=== PATIENT | female | born 1940 | race Caucasian/White ===

== ENCOUNTER 2019-11-17 12:54 | Outpatient (CLI) | payer MEDICARE, BC, SELFPAY ==
--- NOTE | 2019-11-17 13:01 | CT_ITS ---
WS: [id number] CT ABDOMEN CONTRAST TECHNIQUE: Contrast enhanced CT of the abdomen with coronal and sagittal reformatted images. CLINICAL INFORMATION: USPECIFIED ABD PAIN COMPARISON: None. DLP: 697.[address] scans at [facility] use at least one of these dose optimization techniques: automat ed exposure control; mA and/or kV adjustment per patient size (includes targeted exams where dose is matched to clinical indication); or iterative reconstruction. FINDINGS: Mild diffuse fatty infiltration liver. Hepatomegaly with enlargement of the right hepatic lobe measur ing 18.5 cm. Normal portal vein and splenic vein. Gallbladder is contracted. Normal spleen. Visualize d pancreas is normal. Adrenal glands are normal. Normal renal parenchymal enhancement. Right renal cyst measuring 2.1 cm. N o hydronephrosis. Lung bases are well aerated. Normal caliber abdominal aorta. Aortic calcification. Tiny fat-containing umbilical hernia. Lumbar scoliosis convex right. Disc space narrowing worse at L2 -3. CT/CT abdomen w con* [id number] IMPRESSION: 1. Diffuse fatty infiltration of the liver with enlargement of the right hepat ic lobe. Recommend correlation with liver function tests. 2. Right renal cyst measuring 2.1 cm. No hydronephrosis. Normal renal parenchy mal enhancement. 3. Normal caliber abdominal aorta. 4. Lumbar scoliosis convex right. 5. No other significant findings.
[2019-11-17] MEDS: iohexol 300 mg/mL 50 mL Btl PO (13:49)
== END 2019-11-17 12:55 | disposition home or self-care (01) ==
LOC: RADWPI 12:57
PROVIDERS: Family Provider General Practice; PCP General Practice; Visit Provider General Practice
DX: R10.9 Unspecified abdominal pain (principal); K76.0 Fatty (change of) liver, not elsewhere classified; N28.1 Cyst of kidney, acquired
CPT/HCPCS: 74160; Q9967

== ENCOUNTER → 2019-11-26 10:10 | Outpatient (BNVA) | payer MEDICARE, BC, SELFPAY | PROVIDERS: Family Provider General Practice; PCP General Practice; Visit Provider Internal Medicine | DX: Z11.59 Encounter for screening for other viral diseases (principal) | CPT/HCPCS: 87635 ==

== ENCOUNTER 2019-11-28 08:53 | Day surgery (SDC) | payer MEDICARE, BC, SELFPAY ==
[2019-11-27 08:22] VITALS: BMI 27.4
[2019-11-28 09:19] VITALS: BP 145/86; PULSE 72; RESP 18; TEMP 36.3; O2SAT 98
[2019-11-28] MEDS: sodium chloride 0.9% 1,000 ML 30 ML IV (09:30)
--- NOTE | 2019-11-28 09:47 | W.PM.OPSUD ---
Surgery/Procedure H&P Update DATE OF PROCEDURE: November 28, 2019 DATE H&P PERFORMED: 11/19/19 PREOP DIAGNOSIS: pain PLANNED PROCEDURE: Operation Date: 11/28/19 10:00 Proposed Procedures p EGD 20730 R10.11(Not Applicable) - Lance Mcdonald MD
--- NOTE | 2019-11-28 10:08 | P.ANESASSM_ITS ---
Pre-Anesthetic Assessment Pre-Anesthetic Assessment: Height/Weight: Height 1.6 m Weight 70.307 kg Temp Pulse Resp BP Pulse Ox 97.4 F L 72 18 145/86 98 11/28/19 09:19 11/28/19 09:19 11/28/19 09:19 11/28/19 09:19 11/28/19 09:19 Preop Diagnosis: pain Proposed Procedure: Operation Date: 11/28/19 10:00 Proposed Procedures p EGD 49531 R10.11(Not Applicable) - Lance Mcdonald MD Familial anesthetic complications: none Was Beta Sanya taken within 24 hours: N/A Last intake: Intake Last Liquid Date 11/27/19 Last Liquid Time 20:00 Last Solid Date 11/27/19 Last Solid Time 20:00 Social: Social History: No alcohol and No tobacco Exam: Pre-Anes Outpt Exam: alert, oriented x 3, clear to auscultation bilaterally and regular rate & rhythm Airway: Cervical ROM: WNL MP: 1 Dentition: False GI: GI: GERD Metabolic: Metabolic: Hyperlipidemia Anesthetic Plan: ASA status: 2 Anesthesia: MAC Risk of > 500 ml blood lo ss (7ml/kg in children): No PFSH Anesthesia PFSH: Family History (Updated 11/19/19 @ 12:53 by VALERIE Gotti) Father Cancer Mother Diabetes Social History (Updated 11/19/19 @ 12:54 by VALERIE Gotti) Smoking and tobacco status: former smoker Alcohol intake: never service: No History of recent travel: No Data Anesthesia Cardiac Studies: No Data to Display
[2019-11-28 10:46] VITALS: BP 146/66; PULSE 61; RESP 16; TEMP 36.6; O2SAT 96
== END 2019-11-28 11:15 | disposition home or self-care (01) ==
PROVIDERS: PCP General Practice; Visit Provider Internal Medicine
PROC: 0DJ08ZZ Inspection of Upper Intestinal Tract, Via Natural or Artificial Opening Endoscopic (ICD-10-PCS; CPT 43235; principal; 2019-11-28 10:00)
DX: R10.13 Epigastric pain (principal); E78.5 Hyperlipidemia, unspecified; Z79.82 Long term (current) use of aspirin; Z87.891 Personal history of nicotine dependence; Z88.0 Allergy status to penicillin
CPT/HCPCS: 12345; 43235; J2704; J7030

== ENCOUNTER 2019-12-26 09:31 | Outpatient (CLI) | payer MEDICARE, BC, SELFPAY ==
--- NOTE | 2019-12-26 10:00 | NM_ITS ---
WS: [id number] NUCLEAR MEDICINE HIDA SCAN WITH GALLBLADDER EJECTION FRACTION HISTORY: right upper quadrant pain COMPARISON: 11/17/2019 TECHNIQUE: The patient was intravenously injected with 8.0 mCi of TC99m Mebrofenin. Immediate imaging over the right upper quadrant was followed by 5 minute image and additional images for a total of 60 minutes. Normal uptake of radiotracer throughout the liver. Activity identified in the gallbladder at 40 minutes and minimally well distended by 60 minutes. Activity in the proximal small bowel was seen by 15 minutes. Good washout of the radiotracer from the liver by 60 minutes. The patient then drank 8 ounces of Ensure Plus. Ejection fraction at 60 minutes is not definable. The re is no significant ejection at 62 minutes. Post fatty meal symptoms: None. NM/NM hepatobiliary w phar* [id number] IMPRESSION: 1. No cystic or common bile duct obstruction. 2. No significant gallbladder ejection at 60 minutes. Suspect chronic gallblad jose r dysfunction.
== END 2019-12-26 09:32 | disposition home or self-care (01) ==
LOC: NM 09:32
PROVIDERS: PCP General Practice; Visit Provider Surgery
DX: R10.11 Right upper quadrant pain (principal)
CPT/HCPCS: 78227; A9537

== ENCOUNTER → 2020-01-02 10:21 | Outpatient (BNVA) | payer MEDICARE, BC, SELFPAY | PROVIDERS: PCP General Practice; Visit Provider Surgery | DX: Z11.59 Encounter for screening for other viral diseases (principal); R10.11 Right upper quadrant pain | CPT/HCPCS: 87635 ==

== ENCOUNTER 2020-01-07 05:46 | Day surgery (SDC) | payer MEDICARE, BC, SELFPAY ==
[2020-01-06 12:22] VITALS: BMI 27.4
[2020-01-07] VITALS (20 sets, daily range): BP systolic 110–177; BP diastolic 53–92; PULSE 67–107; RESP 16–21; TEMP 36.2–36.6; O2SAT 93–100
[2020-01-07] MEDS: sodium chloride 0.9% 1,000 ML 30 ML IV (06:28)
--- NOTE | 2020-01-07 06:41 | ANES.PREANE2 ---
Pre-Anesthetic Assessment Pre-Anesthetic Assessment: Height/Weight: Height 1.6 m Weight 70.307 kg Temp Pulse Resp BP Pulse Ox 97.1 F L 67 18 146/67 94 01/07/20 06:10 01/07/20 06:10 01/07/20 06:10 01/07/20 06:10 01/07/20 06:10 Preop Diagnosis: Chronic cholecystitis Proposed Procedure: Operation Date: 01/07/20 07:00 Proposed Procedures p Laparoscopic possible open Cholecystectomy 68012 R10.11(Not Applicable) - Dangelo Cochran MD Familial anesthetic complications: None Was Beta Sanya taken within 24 hours: N/A Last intake: Intake Last Liquid Date 01/06/20 Last Liquid Time 20:00 Last Solid Date 01/06/20 Last Solid Time 14:00 Social: Social History: No alcohol and No tobacco Exam: Pre-Anes Outpt Exam: alert, oriented x 3, clear to auscultation bilaterally and regular rate & rhythm Airway: Cervical ROM: WNL MP: 1 Dentition: False Metabolic: Metabolic: Hyperlipidemia and Thyroid Musc/skel: Musc/skel: None reported Neuropsych: Neuropsych: None reported Anesthetic Plan: ASA status: 2 Anesthesia: General Risk of > 500 ml blood loss (7ml/kg in children): No Meds/Allergies Current Medications: Current Medications Generic Name Dose Route Start Last Admin Trade Name Freq PRN Reason Stop Dose Admin Sodium Chloride 1,000 mls @ 30 ml s/hr 01/07/20 06:00 01/07/20 06:28 Sodium Chloride 0.9% IV 01/08/20 05:59 30 mls/hr .Q24H VALORIE Administration PFSH Anesthesia PFSH: Medical History GERD (gastroesophageal reflux disease) Hyperlipemia Hypothyroidism Surgical History H/O colonoscopy yrs ago H/O esophagogastroduodenoscopy H/O tubal ligation Family History Father Cancer Mother Diabetes Denies family history of Anesthesia complication Bleeding disorder Social History Smoking and tobacco status: former smoker Alcohol intake: never Household members: spouse Marital status: service: No Current occupational status: retired History of recent travel: No Data Anesthesia Cardiac Studies: No Data to Display
--- NOTE | 2020-01-07 06:53 | W.PM.OPSUD ---
Surgery/Procedure H&P Update DATE OF PROCEDURE: January 07, 2020 DATE H&P PERFORMED: 01/02/20 H&P UPDATE INFORMATION: I have reviewed H&P completed within last 30 days, I have examined patient prior to procedure and No changes to prior documentation PREOP DIAGNOSIS: Chronic cholecystitis PLANNED PROCEDURE: Operation Date: 01/07/20 07:00 Proposed Procedures p Laparoscopic possible open Cholecystectomy 63043 R10.11(Not Applicable) - Dangelo Cochran MD
[2020-01-07] MEDS: ciprofloxacin 400 MG/200 ML PREMIX 200 MG IV (06:57)
[2020-01-07] MEDS: fentaNYL 50 mcg/mL INJ 2mL IVP (07:52)
--- NOTE | 2020-01-07 08:04 | SUR.PHASEI ---
pt restless and kicking on awakening, pt moans ,unable to voice pain see earlier pain med given. pt now awake alert talkative, still moves legs restlessly but denies pain , nods head yes that she is always resless. vss pt on ra sats 92-94%
--- NOTE | 2020-01-07 08:23 | PM.OP ---
Operative Report Date of procedure: January 07, 2020 Pre-op Diagnosis: Chronic cholecystitis Post-op diagnosis: same Procedure Done: Laparoscopic cholecystectomy Specimens removed/disposition: Gallbladder Surgeon: Dangelo Cochran Anesthesia: General Estimated blood loss (mL): 5 Condition: stable Disposition: PACU Procedure: The patient was taken to the operating room and was intubated under general anesthesia. After the antibiotic had been administered, the abdomen was prepped and draped in a sterile manner. Using a #15 blade, a 1 centimeter infraumbilical curvilinear incision was made and using an open Armando technique the peritoneal cavity was entered. A 10 millimeter port was placed and 15 millimeters of pneumoperitoneum was created. A 10 millimeter, 30 degrees scope was then introduced. Three 5 millimeter ports were placed in the epigastric, midclavicular and the anterior axillary line two fingerbreadths below the costal margin on the right side under the direct visualization. Ratcheted forceps were introduced into the lateral most port and was used to retract the fundus of the gallbladder cephalad and using forceps the infundibulum of the gallbladder was retracted laterally. Using L-hook cautery the peritoneum overlying the Calot's triangle was opened medially and laterally until the cystic duct and the cystic artery were skeletonized. Dissection was carried along the body of the gallbladder and after ensuring critical view of safety, 4 clips applied on the cystic duct and 3 clips applied on the cystic artery and cut leaving, 3 clips on the remaining portion of the duct and 2 clips on the remaining portion of the artery. The rest of the gallbladder was dissected off the liver using L-hook cautery. There was no bleeding or bile leaking noted from the gallbladder fossa and the clips appeared to be in place. An EndoCatch bag was introduced to remove the gallbladder. All the ports were removed under direct visualization and there was no bleeding noted from the port sites. The fascia of the umbilicus was closed using [id number] 0 Vicryl sutures and the subcutaneous tissue was approximated using 3-0 Vicryl sutures. The skin at all four ports were closed using 4-0 Monocryl and Dermabond. A total of 10 millimeters of 0.5% Marcaine was infiltrated around the port sites. The patient was stable throughout the procedure.
--- NOTE | 2020-01-07 09:15 | ANE.PACU2 ---
Inpatient post-anesthesia follow up: Airway intact: Yes Vital signs: Temperature 97.2 F Pulse Rate 67 Respiratory Rate 18 Blood Pressure 116/71 Pulse Oximetry 94 Oxygen Delivery Me thod Room Air Oxygen Flow Rate 8 Fraction of Inspir ed Oxygen Hydration adequate: Yes Nausea and vomiting: No Pain level: 2 Mental status: Baseline
== END 2020-01-07 09:15 | disposition home or self-care (01) ==
PROVIDERS: PCP General Practice; Visit Provider Surgery
PROC: 0FT44ZZ Resection of Gallbladder, Percutaneous Endoscopic Approach (ICD-10-PCS; CPT 47562; principal; 2020-01-07 07:00)
DX: K81.1 Chronic cholecystitis (principal); E78.5 Hyperlipidemia, unspecified; E03.9 Hypothyroidism, unspecified; K21.9 Gastro-esophageal reflux disease without esophagitis; Z87.891 Personal history of nicotine dependence; Z79.82 Long term (current) use of aspirin
CPT/HCPCS: 47562; 12345; 88304; J0744; J1100; J2370; J2405; J2704; J2710; J3010; J3490; J7030

== ENCOUNTER 2021-01-04 10:27 | Outpatient (CLI) | payer MEDICARE, BC, SELFPAY ==
--- NOTE | 2021-01-04 10:45 | MM_ITS ---
WS: [id number] DIAGNOSTIC BILATERAL DIGITAL MAMMOGRAM WITH CAD LEFT breast ultrasound, limited. HISTORY: Mastodynia; pain OF BREAST COMPARISON: 01/07/2019 and 01/01/2018 TECHNIQUE: Bilateral craniocaudad, mediolateral oblique, and mediolateral views are submitted. Spot c ompression LEFT CC and MLO. Computer aided detection utilized. Breast composition: There are scattered areas of fibroglandular density. Long-term stability well-cir cumscribed lobulated 7 mm nodule in the upper outer quadrant of the LEFT breast. There are additional benign calcifications within each breast. No underlying soft tissue abnormality in the palpable donald er placement. LEFT breast ultrasound, limited. Ultrasound directed to the area of pain. No abnormality is noted. The lobulated cyst or cluster cysts at 1:00 measures 7 x 5 x 7 mm. This corresponds to the long-term stable nodule seen on mammogram. MM/[place] [id number] IMPRESSION: BI-RADS: 2-Benign FOLLOW UP: 1 Year Follow-up
== END 2021-01-04 10:28 | disposition home or self-care (01) ==
LOC: RADSHAW 10:38
PROVIDERS: PCP General Practice; Visit Provider Family Medicine
DX: N60.02 Solitary cyst of left breast (principal); N64.4 Mastodynia
CPT/HCPCS: 76642; 77066

== ENCOUNTER 2021-05-02 12:49 | Outpatient (CLI) | payer MEDICARE, BC, SELFPAY ==
--- NOTE | 2021-05-02 13:03 | US_ITS ---
WS: [id number] THYROID ULTRASOUND HISTORY: HYPOTHYROIDISM COMPARISON: None available. Right lobe: 1.0 cm x 0.9 cm x 3.7 cm (w x ap x l). Volume: 1.6 cm3. Small atrophic mildly heterogeneous gland. No nodules. No calcification. Left lobe: 0.8 cm x 1.0 cm x 2.9 cm (w x ap x l). Volume: 1.2 cm3. Small atrophic mildly heterogeneous gland. No nodules. No calcifications. Isthmus: 0.2 cm. US/US thyroid [id number] IMPRESSION: Atrophy and mildly heterogeneous gland. No suspicious nodule.
== END 2021-05-02 12:50 | disposition home or self-care (01) ==
LOC: RAD 12:56
PROVIDERS: PCP General Practice; Visit Provider Nurse Practitioner Family
DX: E03.9 Hypothyroidism, unspecified (principal); E03.4 Atrophy of thyroid (acquired)
CPT/HCPCS: 76536

== ENCOUNTER 2021-07-26 12:49 | Outpatient (CLI) | payer MEDICARE, BC, SELFPAY ==
--- NOTE | 2021-07-26 12:54 | XR_ITS ---
WS: [id number] DEXA (DUAL ENERGY X-RAY ABSORPTIOMETRY) Bone mineral density was performed using a [employer] machine. HISTORY: OSTEOPOROSIS COMPARISON: None available. Lumbar spine BMD (L1-L4): 0.920 g/cm2 T score: -2.2 Z score: -0.6 Total hip BMD: Left: 0.747 g/cm2. T score: -2.1 Z score: -0.3 Right: 0.719 g/cm2. T score: -2.3 Z score: -0.5 10 year probability of a major osteoporotic fracture is 25.5%. Mild RIGHT curvature lumbar spine. XR/XR DEXA axial skeleton* [id number] IMPRESSION: OSTEOPENIA based upon the WHO classification for females.
== END 2021-07-26 12:50 | disposition home or self-care (01) ==
LOC: RAD 12:50
PROVIDERS: PCP General Practice; Visit Provider Nurse Practitioner Family
DX: M81.0 Age-related osteoporosis without current pathological fracture (principal)
CPT/HCPCS: 77080

== ENCOUNTER 2021-08-19 13:22 | Outpatient (CLI) | payer MEDICARE, BC, SELFPAY ==
--- NOTE | 2021-08-19 13:38 | CT_ITS ---
WS: [id number] CT ABDOMEN AND PELVIS NONCONTRAST HISTORY: RLQ PAIN, fever and RIGHT lower quadrant pain for 6 months. TECHNIQUE: Imaging performed through the abdomen and pelvis. Coronal and sagittal reformats are submi tted. All CT scans at [facility] use at least one of these dose optimization techniques: auto mated exposure control; mA and/or kV adjustment per patient size (includes targeted exams where dose is matched to clinical indication); or iterative reconstruction. DLP: 945.60 mGy.cm COMPARISON: 11/17/2019 Lower thorax: Mild dependent changes at the lung bases. Heart size is top normal to slightly enlarged . Small hiatal hernia. Liver: Normal size liver but there is mild diffuse heterogeneity. No definite discrete well identifie d mass. No bile duct dilatation. Gallbladder: Prior cholecystectomy. No common bile duct dilatation. Pancreas: Normal size and attenuation. Normal pancreatic duct. No pancreatitis or mass. Spleen: Normal size spleen with granulomata. Adrenal glands: Normal. No mass. Mild hyperplasia LEFT adrenal gland. Right kidney: Normal size kidney. 2.2 x 2.2 cm low-attenuation mass in the mid posterior kidney was n oted to be a cyst on a prior study. Only minimal increase in size since that examination. No hydronep hrosis or hydroureter. Left kidney: Normal size kidney with no mass or hydronephrosis. Aorta: Mild atherosclerosis abdominal aorta with no aneurysm. No free fluid, intraperitoneal air or significant lymphadenopathy. GI tract: Stomach is well-distended with oral contrast. No small bowel obstruction. The appendix is n ormal. Diffuse scattered diverticula throughout the colon. No acute diverticulitis. No obstruction. Abdominal wall: Negative. No hernia. Pelvis: Well-distended urinary bladder. Uterus is atrophic and lobulated and mildly heterogeneous. Daugherty spect uterine fibroids. Small cyst in the RIGHT ovary is subcentimeter. Neither ovary is enlarged. Osseous structures: Degenerative thoracolumbar scoliosis. CT/CT abdomen pelvis wo con [id number] IMPRESSION: 1. No acute abdominal or pelvic abnormality. 2. No ascites. 3. Normal appendix. 4. Mild diffuse colonic diverticulosis without acute diverticulitis. 5. Prior cholecystectomy. 6. Minimal increase in size of a previously described RIGHT renal cyst now brittany suring 2.2 cm maximum diameter. 7. Atrophic uterus with suspected small fibroids.
== END 2021-08-19 13:23 | disposition home or self-care (01) ==
LOC: RAD 13:24
PROVIDERS: PCP General Practice; Visit Provider Nurse Practitioner Family
DX: R10.31 Right lower quadrant pain (principal)
CPT/HCPCS: 74176

== ENCOUNTER → 2021-10-10 13:30 | Outpatient (BNVA) | payer MEDICARE, BC, SELFPAY | PROVIDERS: PCP General Practice; Visit Provider Obstetrics & Gynecology | DX: D25.9 Leiomyoma of uterus, unspecified (principal); N83.209 Unspecified ovarian cyst, unspecified side | CPT/HCPCS: 76830; 76856 ==

== ENCOUNTER → 2021-11-16 09:51 | Outpatient (BNVA) | payer MEDICARE, BC, SELFPAY | PROVIDERS: PCP General Practice; Visit Provider Obstetrics & Gynecology | DX: R39.9 Unspecified symptoms and signs involving the genitourinary system (principal) | CPT/HCPCS: 81000 ==

== ENCOUNTER 2021-11-22 11:08 | Day surgery (SDC) | payer MEDICARE, BC, SELFPAY ==
[2021-11-18 11:07] VITALS: BMI 27.3
[2021-11-22] VITALS (8 sets, daily range): BP systolic 137–173; BP diastolic 74–129; PULSE 96–117; RESP 15–22; TEMP 36.3–37; O2SAT 92–96
[2021-11-22] MEDS: sodium chloride 0.9% 1,000 ML 30 ML IV (11:51)
--- NOTE | 2021-11-22 12:05 | ANES.PREANE2 ---
Pre-Anesthetic Assessment Height/Weight: Height 1.6 m Weight 69.853 kg Temp Pulse Resp BP Pulse Ox O2 Del Method 98.1 F 99 18 137/74 96 11/22/21 11:33 11/22/21 11:33 11/22/21 11:33 11/22/21 11:33 11/22/21 11:33 11/22/21 11:39 Preop Diagnosis: cervical stenosis, abdominal pain Operation Date: 11/22/21 12:20 Proposed Procedures p Hysteroscopy, dilation and curettage with Myosure 68839, 54716, 84821,N88.2,R10.2(Not Applicable) - Narcisa Olivas MD s Dilation And Curettage (D&C)(Not Applicable) - Narcisa Olivas MD Familial anesthetic complications: None Was Beta Sanya taken within 24 hours: N/A Was Clonidine taken within 24 hours: N/A Last intake: Intake Last Liquid Date 11/21/21 Last Liquid Time 23:30 Last Solid Date 11/21/21 Last Solid Time 19:00 Social No alcohol and No tobacco Exam alert, oriented x 3, clear to auscultation bilaterally and regular rate & rhythm Airway Mallampati: Class II Dentition: false Pulmonary None reported CV/HEM Hypertension Metabolic Thyroid Disease Anesthetic Plan ASA status: 2 Anesthesia: General Risk of > 500 ml blood loss (7ml/kg in children): No Medications/Allergies Home Medications Medication Instructions Recorded Confirmed Last Taken Type acetaminophen 500 mg capsule 1,000 mg PO Q4H PRN Pain 11/10/19 11/18/21 01/06/20 History aspirin 81 mg tablet,delayed 81 mg PO DAILY 11/10/19 11/22/21 11/17/21 History release citalopram 10 mg tablet 10 mg PO DAILY 11/10/19 11/22/21 11/21/21 History ergocalciferol (vitamin D2) 1,250 1,250 mcg PO .every week 11/10/19 11/22/21 01/03/20 History mcg (50,000 unit) capsule levothyroxine 50 mcg tablet 50 mcg PO DAILY 11/10/19 11/22/21 11/21/21 History (Synthroid) rosuvastatin 10 mg tablet 10 mg PO DAILY 11/10/19 11/22/21 11/21/21 History tramadol 50 mg tablet 50 mg PO TID PRN Pain 11/10/19 11/18/21 01/06/20 History docusate sodium 100 mg capsule 100 mg PO BID #30 caps 01/07/20 11/18/21 Unknown Rx (Colace) losartan 25 mg tablet 25 mg PO DAILY 01/28/21 11/22/21 11/21/21 History misoprostol 200 mcg tablet 600 mcg PO Q6H #24 tabs 11/16/21 11/22/21 11/22/21 Rx (Cytotec) Allergies Allergy/AdvReac Type Severity Reaction Status Date / Time amoxicillin Allergy Mild rash Verified 11/16/21 09:20 Current Medications Generic Name Dose Route Start Last Admin Trade Name Freq PRN Reason Stop Dose Admin Sodium Chloride 1,000 mls @ 30 mls/hr 11/22/21 11:30 11/22/21 11:51 Sodium Chloride 0.9% IV 11/23/21 11:29 30 mls/hr .Q24H VALORIE Administration PFSH Anesthesia Medical History GERD (gastroesophageal reflux disease) Hyperlipemia Hypothyroidism Surgical History H/O colonoscopy yrs ago H/O esophagogastroduodenoscopy H/O tubal ligation Status post laparoscopic cholecystectomy (01/07/20) Family History Father Cancer Mother Diabetes Denies family history of Anesthesia complication Bleeding disorder Social History Smoking and tobacco status: never smoked Data Anesthesia Cardiac Studies: No Data to Display
[2021-11-22] MEDS: fentaNYL 50 mcg/mL INJ 2mL IVP (12:08)
--- NOTE | 2021-11-22 13:21 | W.PM.OPSUD ---
Surgery/Procedure H&P Update DATE OF PROCEDURE: November 22, 2021 DATE H&P PERFORMED: 11/16/21 H&P UPDATE INFORMATION: I have reviewed H&P completed within last 30 days, I have examined patient prior to procedure and No changes to prior documentation PREOP DIAGNOSIS: cervical stenosis, abdominal pain PLANNED PROCEDURE: Operation Date: 11/22/21 12:20 Proposed Procedures p Hysteroscopy, dilation and curettage with Myosure 02461, 67695, 85142,N88.2,R10.2(Not Applicable) - Narcisa Olivas MD s Dilation And Curettage (D&C)(Not Applicable) - Narcisa Olivas MD Related Problem List Diagnoses (1) Cervical stenosis (uterine cervix): (2) Abdominal pain:
[2021-11-22] MEDS: ceFAZolin 2,000 MG in sodium chloride 0.9% (plus) 50 ML 100 MG IV (13:42)
[2021-11-22] MEDS: miSOPROStol 200 mcg Tablet 800 MCG VAGINAL (14:11)
--- NOTE | 2021-11-22 14:25 | P.OP_ITS ---
Operative Report Date of procedure: November 22, 2021 Pre-op diagnosis: Preop Diagnosis cervical stenosis, abdominal pain Post-op diagnosis: same Post-op findings: 7 week sized uterus, thickened endometrium, endocervical polyp Procedure done: hysteroscopy, dilation and curettage with myosure Specimens removed/disposition: endometrial curettings to pathology Surgeon: Narcisa Olivas Anesthesia: General Estimated blood loss (mL): 0 IV fluids (mL): 700 Complications: none Findings: 7 week sized uterus, thickened endometrium, cervical polyp. Cervical stenosis relieved with cytotec Condition: stable Disposition: PACU Procedure: The patient was taken to the operating room where monitored anesthesia was admi nistered and to be adequate. She was prepped and draped in the normal sterile fashion in the dorsal lithotomy position in [facility]. A weighted speculum was placed into the vagina and the anterior lip of the cervix grasped with a single-tooth tenaculum. The cervix was stenotic. 800 mcg was placed vaginally with a little sterile fluid. The uterus was sounded to 7 cm. The cervix was dilated to 16 Maltese. The hysteroscope was advanced into the endometrial cavity. There was excessive endometrial tissue visualized. The MyoSure device was activated and the tissue was removed. Pictures were taken pre and post procedure. All instruments were removed. The patient tolerated the procedure well. Sponge lap and needle counts were correct x3. She was taken to the recovery room in stable condition.
--- NOTE | 2021-11-22 14:31 | PM.DCS ---
Discharge Providers Date of Admission: 11/22/21 Date of Discharge: November 22, 2021 Attending Provider at Discharge: Narcisa Olivas MD Primary Care Provider: Adebayo Mott MD Diagnoses at Discharge Discharge Diagnosis (1) Cervical stenosis (uterine cervix): Status: Acute (2) Abdominal pain: Status: Acute Reason for Visit Reason for Visit: PELVIC AND PERINEAL PAIN Hospital Course Hospital Course The patient was admitted for surgery. She did well postoperatively and was ready for discharge Discharge Data Studies Completed and Pending Pending at discharge Category Date Time Status ES surgery / GI images Routine Exams 11/22/21 12:30 Taken Pathology: Surgical [PTH] Routine Pth 11/22/21 14:24 Ordered Vitals Last Vital Signs Temp 98.1 F 11/22/21 11:33 Pulse 99 11/22/21 11:33 Resp 18 11/22/21 12:08 BP 137/74 11/22/21 11:33 Pulse Ox 95 11/22/21 12:08 O2 Del Method 11/22/21 11:39 Discharge Plan Discharge Condition: Stable Prescriptions: Continued acetaminophen 500 mg capsule 1,000 mg PO Q4H PRN (Reason: Pain) aspirin 81 mg tablet,delayed release (DR/EC) 81 mg PO DAILY citalopram 10 mg tablet 10 mg PO DAILY ergocalciferol (vitamin D2) 1,250 mcg (50,000 unit) capsule 1,250 mcg PO .every week rosuvastatin 10 mg tablet 10 mg PO DAILY levothyroxine [Synthroid] 50 mcg tablet 50 mcg PO DAILY tramadol 50 mg tablet 50 mg PO TID PRN (Reason: Pain) losartan 25 mg tablet 25 mg PO DAILY misoprostol [Cytotec] 200 mcg tablet 600 mcg PO Q6H Qty: 24 0RF Rx Instructions: Start noon 11/20. Take 3 tablets every 6 hours. Last dose 6 11/22 with sip of water docusate sodium [Colace] 100 mg capsule 100 mg PO BID Qty: 30 0RF Discharge Orders: Discharge Order (Routine); Ordered 11/22/21 Ordered By: Narcisa Olivas Discharge Attestations Time Spent in Discharge Care*: less than 30 min Quality Metrics Clinical Quality Measures [ No reported AMI, CVA or VTE this stay] Coding Level of Care Code Acute Chg FW DC note Diagnoses Cervical stenosis (uterine cervix) N88.2 Abdominal pain R10.9
--- NOTE | 2021-11-22 14:48 | SUR.PHASEI ---
1430 PT TO PACU 5 SHIVERING , WARM BLANKETS X [address] WITH NO ECTOPY NOTED, IV TO LT WRIST#20 WITH NS 100ML UP AT KVO RATE PER GRAVIY, PT ID BRACELET TO RT WRIST , PT ID'D WITH 2 IDENITIFIERS, PT ON RA NO OBVIOUS DISTRESS, PT ONLY C/O OF COLD BP ELEVATED , HARD TO GET GOOD READING WITH SHIVERING, PT VERBALLY DENIES PAIN AND NAUSEA 1451 PT WARMER , NOT SHIVERING MUCH, BP MUCH IMPROVED WITH PT NOT SHIVERING.
--- NOTE | 2021-11-22 15:29 | ANE.PACU2 ---
Inpatient post-anesthesia follow up: Airway intact: Yes Vital signs: Temperature 98.6 F Pulse Rate 96 Respiratory Rate 18 Blood Pressure 166/90 Pulse Oximetry 93 Oxygen Delivery Me thod Room Air Oxygen Flow Rate Fraction of Inspir ed Oxygen Hydration adequate: Yes Nausea and vomiting: No Pain level: 1 Mental status: Baseline
== END 2021-11-22 15:35 | disposition home or self-care (01) ==
PROVIDERS: PCP General Practice; Visit Provider Obstetrics & Gynecology
PROC: 0UDB8ZZ Extraction of Endometrium, Via Natural or Artificial Opening Endoscopic (ICD-10-PCS; CPT 58558; principal; 2021-11-22 12:10)
PROC: (CPT 58120; 2021-11-22 12:10)
DX: N88.2 Stricture and stenosis of cervix uteri (principal); N84.0 Polyp of corpus uteri; N95.9 Unspecified menopausal and perimenopausal disorder; I10 Essential (primary) hypertension; E78.5 Hyperlipidemia, unspecified; E03.9 Hypothyroidism, unspecified; K21.9 Gastro-esophageal reflux disease without esophagitis; Z79.82 Long term (current) use of aspirin; Z88.0 Allergy status to penicillin
CPT/HCPCS: 58558; 88305; J2405; J2704; J3010; J7030

== ENCOUNTER → 2022-01-05 12:58 | Outpatient (BNVA) | payer MEDICARE, BC, SELFPAY | PROVIDERS: PCP General Practice; Visit Provider Student in an Organized Health Care Education/Training Program | DX: S62.611A Displaced fracture of proximal phalanx of left index finger, initial encounter for closed fracture (principal); W21.89XA Striking against or struck by other sports equipment, initial encounter | CPT/HCPCS: 73130; 99203; 99204 ==

== ENCOUNTER 2022-01-10 10:50 | Day surgery (SDC) | payer MEDICARE, BC, SELFPAY ==
[2022-01-09 12:34] VITALS: BMI 27.4
[2022-01-10] VITALS (7 sets, daily range): BP systolic 118–159; BP diastolic 65–81; PULSE 61–77; RESP 17–18; TEMP 35.9–37.1; O2SAT 94–100
--- NOTE | 2022-01-10 | SCC_ITS ---
Procedure done: Right index finger proximal phalanx open reduction internal fixation 82 seconds of fluoroscopic guidance, for a cumulative dose of 1.3 mGy, was provided to Dr. Hood by the radiology department. C-arm images of the RIGHT finger were saved for the patient's permanent record. SANGITA
--- NOTE | 2022-01-10 | XR_ITS ---
WS: [id number] Exam: XR finger RT min 2V [id number] Date/Time of Exam: 01/10/2022 12:00 AM Reason For Exam: Percutaneous pinning of finger. Multiple intraoperative C-arm images of the right index finger are submitted for evaluation. Final images depict 2 orthopedic wires stabilizing a fracture of the proximal end of the proximal pha lanx of the index finger in satisfactory position for healing. XR/XR finger RT min 2V [id number] IMPRESSION: 1. Satisfactory pinning involving a fracture of the proximal aspect of the prox imal phalanx of the index finger.
[2022-01-10] MEDS: acetaminophen 1,000 MG/100 ML PIGGYBACK 400 MG IV (11:52)
[2022-01-10] MEDS: sodium chloride 0.9% 1,000 ML 30 ML IV (11:52)
[2022-01-10] MEDS: ketorolac 30 mg/mL INJ IVP (12:05)
--- NOTE | 2022-01-10 12:21 | W.PM.OPSUD ---
Surgery/Procedure H&P Update DATE OF PROCEDURE: January 10, 2022 DATE H&P PERFORMED: 01/05/22 CHANGES TO PREVIOUS DOCUMENTATION: None PREOP DIAGNOSIS: Displaced right index finger proximal phalanx fracture PRIMARY INDICATION FOR PROCEDURE: Displaced/angulated right index finger proximal phalanx fracture PLANNED PROCEDURE: Operation Date: 01/10/22 12:35 Proposed Procedures p RIGHT INDEX FINGER PROXIMAL PHALANX CLOSED REDUCTION PERCUTANEOUS PINNING VERSUS POSSIBLE OPEN REDUCTION 41694, 50934(Right) - Mario Alberto Hood DO
[2022-01-10] MEDS: clindamycin 600 MG/50 ML PREMIX 100 MG IV (12:30)
--- NOTE | 2022-01-10 12:34 | ANES.PREANE2 ---
Pre-Anesthetic Assessment Height/Weight: Height 1.6 m Weight 70.307 kg Temp Pulse Resp BP Pulse Ox O2 Del Method 98.0 F 73 18 156/81 95 01/10/22 11:49 01/10/22 11:49 01/10/22 11:49 01/10/22 11:49 01/10/22 11:49 01/10/22 11:49 Preop Diagnosis: Displaced right index finger proximal phalanx fracture Operation Date: 01/10/22 12:35 Proposed Procedures p RIGHT INDEX FINGER PROXIMAL PHALANX CLOSED REDUCTION PERCUTANEOUS PINNING VERSUS POSSIBLE OPEN REDUCTION 86449, [id number](Right) - DO Evan Gray anesthetic complications: none Was Beta Sanya taken within 24 hours: N/A Was Clonidine taken within 24 hours: N/A Last intake: Intake Last Liquid Date 01/09/22 Last Liquid Time 22:00 Last Solid Date 01/09/22 Last Solid Time 08:00 Social No alcohol and No tobacco Exam alert, oriented x 3, clear to auscultation bilaterally and regular rate & rhythm Airway Submandibular: within normal limits Cervical ROM: within normal limits Mallampati: Class II Dentition: false CV/HEM Hypertension GI Gastroesophageal Reflux Disease Metabolic Thyroid Disease Anesthetic Plan ASA status: 2 Anesthesia: General Medications/Allergies Home Medications Medication Instructions Recorded Confirmed Last Taken Type acetaminophen 500 mg capsule 1,000 mg PO Q4H PRN Pain 11/10/19 01/10/22 01/09/22 History aspirin 81 mg tablet,delayed 81 mg PO DAILY 11/10/19 01/10/22 2 Weeks Ago History release ~12/27/21 citalopram 10 mg tablet 10 mg PO DAILY 11/10/19 01/10/22 01/09/22 History ergocalciferol (vitamin D2) 1,250 1,250 mcg PO .every week 11/10/19 01/10/22 01/08/22 History mcg (50,000 unit) capsule rosuvastatin 10 mg tablet 10 mg PO DAILY 11/10/19 01/10/22 01/09/22 History tramadol 50 mg tablet 50 mg PO TID PRN Pain 11/10/19 01/10/22 01/09/22 History docusate sodium 100 mg capsule 100 mg PO BID #30 caps 01/07/20 01/10/22 3 Months Ago Rx (Colace) ~10/10/21 losartan 25 mg tablet 25 mg PO DAILY 01/28/21 01/10/22 01/09/22 History levothyroxine 25 mcg capsule 25 mcg PO DAILY 11/30/21 01/10/22 01/09/22 History lisinopril 10 mg tablet 10 mg PO DAILY 11/30/21 01/10/22 01/09/22 History omeprazole 20 mg capsule,delayed 20 mg PO DAILY 11/30/21 01/10/22 1 Month Ago History release ~12/11/21 coenzyme Q10 100 mg capsule 100 mg PO BID 01/10/22 01/10/22 01/08/22 History Allergies Allergy/AdvReac Type Severity Reaction Status Date / Time amoxicillin Allergy Mild rash Verified 01/09/22 12:31 Current Medications Generic Name Dose Route Start Last Admin Trade Name Freq PRN Reason Stop Dose Admin Sodium Chloride 1,000 mls @ 30 mls/hr 01/10/22 11:15 01/10/22 11:52 Sodium Chloride 0.9% IV 01/11/22 11:14 30 mls/hr .Q24H VALORIE Administration PFSH Anesthesia Medical History (Updated 01/09/22 @ 22:33 by Mario Alberto Hood DO) Cervical stenosis (uterine cervix) GERD (gastroesophageal reflux disease) Hyperlipemia Hypothyroidism Proximal phalanx fracture of finger Surgical History H/O colonoscopy yrs ago H/O esophagogastroduodenoscopy H/O tubal ligation Status post laparoscopic cholecystectomy (01/07/20) Family History Father Cancer Mother Diabetes Denies family history of Anesthesia complication Bleeding disorder Social History Smoking and tobacco status: never smoked Data Anesthesia Cardiac Studies: No Data to Display
--- NOTE | 2022-01-10 13:30 | PM.OP2 ---
Brief Operative Note Date of procedure: 01/10/22 Pre-op diagnosis: Right index finger proximal phalanx fracture Post-op diagnosis: same Procedure Done: Open reduction and internal fixation right index finger proximal phalanx fracture Surgeon: Mario Alberto Hood Estimated blood loss (mL): 2 Complications: None Post-op Plan: Patient to recover in PACU. Will discharge later today. Will be given appropriate discharge instructions as well as pain medication postoperatively. Splint on in place and clean dry and intact. Patient will follow-up with Dr. Hood in office in 2 weeks. Maintain dressing until follow-up. Patient and understand agree with current plan. All questions answered. Condition: stable Disposition: same day Coding Level of Care Code Acute Conche Operator for Nati Butler
--- NOTE | 2022-01-10 13:35 | PM.PACU ---
PACU note Narrative: Patient seen and evaluated in PACU. Patient recovering well. Patient still sedated from anesthesia. Fingertips warm well perfused. Brisk capillary refill less than 2 seconds. Dressings on in place and clean dry and intact with splint in place. Will discharge home later today. Exam: somnolent, arousable (Unable to follow commands, refer to narrative for detailed exam) Disposition: discharged
--- NOTE | 2022-01-10 13:45 | P.OP_ITS ---
Operative Report Date of procedure: January 13, 2022 Pre-op diagnosis: Preop Diagnosis Displaced right index finger proximal phalanx fracture Post-op diagnosis: Same Procedure done: Right index finger proximal phalanx open reduction internal fixation Implants: 2x 0.45 K wires Surgeon: Mario Alberto Hood DO Estimated blood loss (mL): 2 Estimated blood loss: 2 17 minutes IV fluids: See anesthesia record Complications: None Findings: See operative report narrative Condition: stable Disposition: same day Brief History: Danyel is a sweet 81-year-old female who sustained an injury to her right index finger causing a fracture to her right proximal phalanx. She was seen evaluated in the outpatient setting physical exam and radiographic findings confirm the preoperative diagnosis of a displaced right proximal phalanx fracture of the index finger. That point time she has a noticeable deformity as well as some malrotation of the right index finger as well as significant decreased range of motion due to her displacement and pain. We shared in detail decision making about her treatment options as far as nonoperative and operative intervention. We talked about the risk benefits complication alternatives to each surgical nonsurgical treatment option. Through shared decision making she agrees to proceed with surgical intervention. Patient understands risk benefits complications and alternatives and agrees to proceed with surgical intervention. Consent was obtained in office. All questions answered patient agrees to proceed with surgical intervention. Procedure: Patient was seen evaluated in the preoperative holding area. Consent was rev iewed with patient. Correct extremity was marked. Patient was accompanied by her in the preoperative holding area. Once seen evaluated by the anesthesia and preoperative team and cleared for surgery she was taken back to the operative suite. She was placed onto the OR table in supine position all bony prominences well-padded and patient was appropriately secured to the bed. Tourniquet was applied to the right upper extremity. Right upper extremity was then placed on an arm table. The right upper extremity was then prepped and draped in standard orthopedic fashion. Patient received appropriate preoperative antibiotics. Final timeout performed. Esmarch tourniquet was used exsanguinate the right upper extremity. Tourniquet was inflated. Mini C-arm was brought in and multiple attempts at closed reduction were performed of the right index finger proximal phalanx fracture with minimal anatomic reduction. Given the significant shortening and deformity I made a small incision directly over the dorsal aspect of the fracture carried through subcutaneous tissue. I utilized a blunt blunt [place] to split through the extensor mechanism at this level and entered into the fracture site and levered up the displaced fracture and anatomic reduction. Once anatomic reduction was achieved I then inserted 2 K wires in crossing pin fashion 1 starting at the base of the proximal phalanx traversing the fracture site and into the distal fragment cortex. Another was started at the distal fracture site and into the base of the of the proximal phalanx base ulnarly. This created an appropriate cross pin configuration that was stable. Mini C arm was brought in and confirmed to have appropriate anatomic reduction in multiple orthogonal images. The finger was then taken through range of motion and showed no displacement and maintenance of reduction. At this point time I was satisfied with my fixation. Needle hazmat truck driver was used to hold K wires in place and Arellano tip was appropriate band of K wires and these were excess ends were cut. Pins were capped. Tourniquet was then deflated. Hemostasis was maintained with electrocautery and pressure. I then irrigated the incision. The skin was then approximated with interrupted nylon suture. Pin sites were then covered with Xeroform as well as the incisions. A bulky soft dressing followed by a volar splint was then applied. Patient was then dressed with an Jasmeet wrap. Patient was awakened from anesthesia and taken to PACU in stable condition. Patient tolerated procedure without complications. Disposition: Patient recover in PACU. Splint on in place to leave until follow- up. Patient will follow-up with Dr. Hood in office in 2 weeks. Will be given appropriate discharge instruction as well as pain medication postoperatively. We will see her back in 2 weeks. Should be nonweightbearing to the right upper extremity.
--- NOTE | 2022-01-10 17:04 | ANE.PACU2 ---
Inpatient post-anesthesia follow up: Airway intact: Yes Vital signs: Temperature 96.6 F Pulse Rate 69 Respiratory Rate 18 Blood Pressure 159/72 Pulse Oximetry 94 Oxygen Delivery Me thod Room Air Oxygen Flow Rate 6 Fraction of Inspir ed Oxygen Hydration adequate: Yes Nausea and vomiting: No Pain level: 2 Mental status: Baseline
== END 2022-01-10 14:30 | disposition home or self-care (01) ==
PROVIDERS: PCP Nurse Practitioner Family; Visit Provider Student in an Organized Health Care Education/Training Program
PROC: (CPT 26735; principal; 2022-01-10 12:35)
DX: S62.610A Displaced fracture of proximal phalanx of right index finger, initial encounter for closed fracture (principal); X58.XXXA Exposure to other specified factors, initial encounter; I10 Essential (primary) hypertension; K21.9 Gastro-esophageal reflux disease without esophagitis; E78.5 Hyperlipidemia, unspecified; E03.9 Hypothyroidism, unspecified
CPT/HCPCS: 26735; 73140; 76000; C1713; J0131; J1100; J1885; J2370; J2405; J2704; J2795; J3010; J3490; J7030

== ENCOUNTER → 2022-01-24 09:42 | Outpatient (BNVA) | payer MEDICARE, BC, SELFPAY | PROVIDERS: PCP Nurse Practitioner Family; Visit Provider Student in an Organized Health Care Education/Training Program | DX: Z98.890 Other specified postprocedural states (principal); S62.619D Displaced fracture of proximal phalanx of unspecified finger, subsequent encounter for fracture with routine healing; X58.XXXD Exposure to other specified factors, subsequent encounter | CPT/HCPCS: 73140; 99024 ==

== ENCOUNTER → 2022-02-14 10:31 | Outpatient (BNVA) | payer MEDICARE, BC, SELFPAY | PROVIDERS: PCP Nurse Practitioner Family; Visit Provider Student in an Organized Health Care Education/Training Program | DX: S62.619A Displaced fracture of proximal phalanx of unspecified finger, initial encounter for closed fracture (principal) | CPT/HCPCS: 73130; 99024 ==

== ENCOUNTER 2022-05-17 06:00 | Outpatient (RCR) | payer MEDICARE, BC, SELFPAY | END 2022-06-16 23:59 | disposition home or self-care (01) | LOC: APT 06:00 | PROVIDERS: PCP Nurse Practitioner Family; Visit Provider Nurse Practitioner Family | DX: M54.50 Low back pain, unspecified (principal); G89.29 Other chronic pain | CPT/HCPCS: 97110; 97161 ==

== ENCOUNTER → 2022-07-12 10:13 | Outpatient (BNVA) | payer MEDICARE, BC, SELFPAY | PROVIDERS: PCP Nurse Practitioner Family; Visit Provider Obstetrics & Gynecology | DX: R10.31 Right lower quadrant pain (principal) | CPT/HCPCS: 76830 ==

== ENCOUNTER 2022-07-25 12:04 | Observation (INO) | payer MEDICARE, BC, SELFPAY ==
[2022-07-25 12:27] VITALS: BP 127/63; PULSE 69; RESP 18; TEMP 36.4; O2SAT 99
--- NOTE | 2022-07-25 12:41 | ECG_ITS ---
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 Measurements Intervals [place] Rate: 65 P: 150 AL: 161 QRS: 143 QRSD: 86 T: 143 QT: 375 QTc: 391 Interpretive Statements SINUS RHYTHM ARM LEADS REVERSED [INVERTED P AND QRS IN I] No previous ECG available for comparison Electronically Signed On 07-25-2022 16:57:27 CDT by Jeffrey Bautista M.D. [email or web address] [email or web address] [email or web address]/store/Ov/[id number]
--- NOTE | 2022-07-25 12:41 | XRR_ITS ---
PROCEDURE INFORMATION: Exam: XR Chest Exam date and time: 07/25/2022 1:14 PM Age: 82 years old Clinical indication: Pain; Angina pectoris; Prior surgery; Surgery date: 6+ months; Surgery type: Gb; Additional info: Cp TECHNIQUE: Imaging protocol: Radiologic exam of the chest. Views: 1 view. COMPARISON: CT abdomen pelvis wo con [id number] 08/19/2021 3:15 PM FINDINGS: Lungs: Unremarkable. No consolidation. Pleural spaces: Unremarkable. No pleural effusion. No pneumothorax. Heart/Mediastinum: Unremarkable. No cardiomegaly. Bones/joints: Unremarkable. XR/XR chest 1V portable [id number] IMPRESSION: No acute findings.
[2022-07-25 13:57] LABS: Basophils # 0.1 10^3/uL (0.0-0.1); Basophils % 0.8 %; Hematocrit 38.9 % (37.0-47.0); Hemoglobin 12.5 g/dL (11.5-15.3); Lymphocytes # 2.6 10^3/uL (0.8-4.8); Lymphocytes % 33.6 %; Mean Corpuscular HGB Conc 32.1 g/dL (30.0-36.0); Mean Corpuscular Hemoglobin 30.7 pg (28.0-34.0); Mean Corpuscular Volume 95.6 fl (81-99); Mean Platelet Volume 9.7 fL (7.4-10.4); Monocytes # 0.5 10^3/uL (0.2-0.9); Monocytes % 6.7 %; Neutrophils # 4.55 10^3/uL (1.8-7.7); Neutrophils % 58.4 %; Nucleated Red Blood Cells % 0 %; Platelet Count 278 10^3/cmm (130-400); Red Blood Count 4.07 10^6/uL (4.1-5.3); Red Cell Distribution Width 13.1 % (12.1-15.1); White Blood Count 7.8 10^3/uL (4.0-10.0)
--- NOTE | 2022-07-25 14:11 | ED_ITS ---
HPI - Chest Pain General: Chief Complaint: Chest Pain Stated Complaint: Chest Pain Time Seen by Provider: 07/25/22 14:11 History of Present Illness: Ms. Cavanaugh is an 82-year-old lady with significant past medical history of hypertension and hyperlipidemia presenting to the emergency department for chest discomfort. She reports an episode that began at rest yesterday with pressure in the middle of her chest with radiation of back and left arm. This resolved spontaneously however she had recurrence of episode today which is now constant. Intensity is moderate to mild. There is radiation of the back and left arm, no other typical cardiac features. Denies episodes in the past. No other specific changes in health, exacerbating, or alleviating factors identified. Onset (ago): day(s) Timing of current episode: episodic Prior episodes: No Onset: during rest Pain location: substernal Pain radiation: left arm and back Severity: moderate Quality: aching Relieving factors: nothing Exacerbating factors: nothing Associated symptoms: Reports no associated symptoms Review of Systems General: Reports: 10 or more systems reviewed and unremarkable except in HPI and below PFSH ED PFSH: Medical History (Updated 07/27/22 @ 00:02 by VILMA Gregory) Cervical stenosis (uterine cervix) Chest pain GERD (gastroesophageal reflux disease) Hyperlipemia Hypertension Hypothyroidism Proximal phalanx fracture of finger RLQ abdominal pain Surgical History H/O colonoscopy yrs ago H/O esophagogastroduodenoscopy H/O tubal ligation Status post laparoscopic cholecystectomy (01/07/20) Family History Father Cancer Mother Diabetes Denies family history of Anesthesia complication Bleeding disorder Social History Smoking and tobacco status: never smoked Substance/Drug Use: never Physical Exam Const: COMMON NORMALS: alert GENERAL APPEARANCE: cooperative and well developed HENMT: COMMON NORMALS: normocephalic and atraumatic HEAD & SCALP: normocephalic and atraumatic Eye: COMMON NORMALS: conjunctivae normal CONJUNCTIVA: Yes conjunctivae normal SCLERA: sclerae normal Neck/C-Spine: COMMON NORMALS: supple GENERAL: Yes trachea midline Resp: COMMON NORMALS: clear to auscultation bilaterally EFFORT & INSPECTI ON: Yes able to speak in complete sentences AUSCULTATION: clear to auscultation bilaterally Cardio: COMMON NORMALS: regular rate and regular rhythm RATE: regular rate RHYTHM: regular rhythm GI: COMMON NORMALS: Soft to palpation PALPATION: Yes Soft to palpation and No Tenderness to palpation present (GI) Extremity: GENERAL: Yes normal exam except as noted and No edema Neuro: COMMON NORMALS: moves all extremities SENSORIUM/ORIENTATION: Yes alert and No Orientation impaired Psych: COMMON NORMALS: mental status grossly normal and Normal thought process present THOUGHT PROCESS: Normal thought process present Course Vital Signs: Vital signs: Vital Signs Temperature 98.4 F 07/26/22 16:39 Pulse Rate 80 07/26/22 16:39 Respiratory Rate 17 07/26/22 16:39 Blood Pressure 116/68 07/26/22 16:39 Pulse Oximetry 95 07/26/22 16:39 Oxygen Delivery Me thod Room Air 07/26/22 08:45 MDM - Chest Pain Medical Decision Making 82-year-old lady presenting to the ER for chest pain. Exam as above. EKG demonstrates sinus rhythm with bradycardia, normal axis and intervals, no STEMI. Labs with no significant hematologic abnormalities, metabolic panel with minimal hypokalemia. Negative range 2-hour delta troponin. Chest x-ray with no lobar consolidation or pneumothorax. Patient is not low risk by heart score and after discussion we will proceed with inpatient further cardiac testing. The results of ED evaluation were discussed with the patient including plan for admission due to requirement for level of care not available if discharged to prevent significant worsening/deterioration. Patient agreeable with plan. Discussed with hospitalist service who was agreeable to admit patient. Medical Records I reviewed the patient's medical records. Lab Data I reviewed the patient's lab results. 07/25/22 13:40 07/25/22 13:40 Radiology Impressions Chest X-Ray 07/25/22 12:41 IMPRESSION: No acute findings. Laboratory Results WBC 7.8 10^3/uL (4.0-10.0) 07/25/22 13:40 RBC 4.07 10^6/uL (4.1-5.3) L 07/25/22 13:40 Hgb 12.5 g/dL (11.5-15.3) 07/25/22 13:40 Hct 38.9 % (37.0-47.0) 07/25/22 13:40 MCV 95.6 fl (81-99) 07/25/22 13:40 MCH 30.7 pg (28.0-34.0) 07/25/22 13:40 MCHC 32.1 g/dL (30.0-36.0) 07/25/22 13:40 RDW 13.1 % (12.1-15.1) 07/25/22 13:40 Plt Count 278 10^3/cmm (130-400) 07/25/22 13:40 MPV 9.7 fL (7.4-10.4) 07/25/22 13:40 Neut % (Auto) 58.4 % 07/25/22 13:40 Lymph % (Auto) 33.6 % 07/25/22 13:40 Saline % (Auto) 6.7 % 07/25/22 13:40 Eos % (Auto) 0.0 % 07/25/22 13:40 Baso % (Auto) 0.8 % 07/25/22 13:40 Neut # (Auto) 4.55 10^3/uL (1.8-7.7) 07/25/22 13:40 Lymph # (Auto) 2.6 10^3/uL (0.8-4.8) 07/25/22 13:40 Saline # (Auto) 0.5 10^3/uL (0.2-0.9) 07/25/22 13:40 Eos # (Auto) 0.0 10^3/uL (0.0-0.8) 07/25/22 13:40 Baso # (Auto) 0.1 10^3/uL (0.0-0.1) 07/25/22 13:40 Nucleated RBC % (auto) 0 % 07/25/22 13:40 Nucleated RBCs # 0.0 /100WBC 07/25/22 13:40 Sodium 141 mmol/L (136-145) 07/25/22 13:40 Potassium 5.2 mmol/L (3.5-5.1) H 07/25/22 13:40 Chloride 105 mmol/L (98-107) 07/25/22 13:40 Carbon Dioxide 26 mmol/L (22-29) 07/25/22 13:40 Anion Gap 15.2 (5-19) 07/25/22 13:40 BUN 22 mg/dL (8-23) 07/25/22 13:40 Creatinine 0.7 mg/dL (0.5-0.9) 07/25/22 13:40 GFR Calculation Not Reportable 07/25/22 13:40 Glucose 96 mg/dL (65-115) 07/25/22 13:40 Calculated Osmolality 295 mOsm/kg (285-295) 07/25/22 13:40 Calcium 9.2 mg/dL (8.5-10.5) 07/25/22 13:40 Total Bilirubin 0.3 mg/dL (0.15-1.2) 07/25/22 13:40 AST 21 U/L (0-32) 07/25/22 13:40 ALT 15 U/L (0-33) 07/25/22 13:40 Alkaline Phosphatase 61 U/L (35-105) 07/25/22 13:40 Troponin T Baseline 7 ng/L (0-10) 07/25/22 13:40 Troponin T 120 Minute 8.53 ng/L (0-10) 07/25/22 16:07 Delta Troponin T 1.53 ABS# (0-10) 07/25/22 16:07 NT-Pro-B Natriuret Pep 142 pg/mL (0-450) 07/25/22 13:40 Total Protein 7.3 g/dL (6.6-8.7) 07/25/22 13:40 Albumin 4.6 g/dL (3.5-5.2) 07/25/22 13:40 Globulin 2.7 g/dL (1.3-4.6) 07/25/22 13:40 Discharge Plan Discharge Patient Disposition: Placed in Observation Admit Provider: Adebayo Erickson Clinical Impression: Chest pain Discharge Diet: Advance as tolerated and Usual diet Discharge Activity: Resume usual activity and Increase activity as tolerated Coding Level of Care Code ED Disc Pad Grinder for Nati Butler
[2022-07-25 14:19] LABS: Troponin(5th) Baseline 7 ng/L (0-10)
[2022-07-25 14:28] LABS: Alanine Aminotransferase 15 U/L (0-33); Albumin Level 4.6 g/dL (3.5-5.2); Alkaline Phosphatase 61 U/L (35-105); Anion Gap 15.2 (5-19); Aspartate Amino Transferase 21 U/L (0-32); Blood Urea Nitrogen 22 mg/dL (8-23); Calcium 9.2 mg/dL (8.5-10.5); Carbon Dioxide 26 mmol/L (22-29); Chloride 105 mmol/L (98-107); Globulin 2.7 g/dL (1.3-4.6); Glucose 96 mg/dL (65-115); NT Pro B Type Natriuretic Pept 142 pg/mL (0-450); Osmolality Calculated 295 mOsm/kg (285-295); Potassium 5.2 mmol/L (3.5-5.1); Sodium 141 mmol/L (136-145); Total Bilirubin 0.3 mg/dL (0.15-1.2); Total Protein 7.3 g/dL (6.6-8.7)
--- NOTE | 2022-07-25 14:41 | ECG_ITS ---
[facility] Test Date: 2022-07-25 Pat Name: Danyel Cavanaugh Department: Room: Gender: Female Sourcing Assistant: : 1940 Requested By: Hiram Turcios Order Number: [id number] Crystal MD: Jeffrey Bautista M.D. Measurements Intervals [place] Rate: 57 P: 31 [place]: 134 QRS: 50 QRSD: 89 T: 59 QT: 415 QTc: 405 Interpretive Statements SINUS BRADYCARDIA Compared to ECG 07/25/2022 12:31:53 Sinus rhythm no longer present Electronically Signed On 07-25-2022 16:59:15 CDT by Jeffrey Bautista M.D. [email or web address] ([email or web address]) [email or web address] va medical centerRukukust. charles hospitalOptimum Interactive USA/store/OM/[id number]
[2022-07-25] MEDS: aspirin 81 mg Chew Tablet 324 MG PO (14:43)
[2022-07-25 16:40] LABS: Troponin 5 2HR 8.53 ng/L (0-10)
[2022-07-25 16:47] LABS: Troponin 5 2HR Delta 1.53 ABS# (0-10)
--- NOTE | 2022-07-25 16:56 | PM.HP ---
Providers/Chief Complaint Admitting Physician: Adebayo Erickson MD Primary Care Provider: Karen Álvarez Chief Complaint: Chest Pain History of Present Illness Danyel Cavanaugh is a 82 year old female with a past medical history significant for GERD, HLD, hypothyroidism, and cervical stenosis who presents to the emergency department with severe chest pain. Patient reports symptoms began yesterday. She reports yesterday she developed acute onset of severe 10/10 chest pain that occurred at rest and lasted for two hours. She denies any prior similar episodes. Patient reports she was at the hospital today with her partner when she developed the same chest pain again with onset just prior to noon. She reports symptoms still presents but improved in intensity. She currently rates the pain 5 out of 10. Endorses radiation to back and left shoulder. Denies other alleviating or aggravating factors. Denies prior known history of ischemic heart disease. Denies prior ischemic work up. Denies known family history of coronary artery disease. 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 Denies fevers, chills, nausea, or emesis. Review of Systems Narrative: A complete review of systems was obtained and is negative except as stated in HPI. Medications/Allergies Home Medications Medication Instructions Recorded Confirmed Last Taken Type acetaminophen 500 mg capsule 1,000 mg PO Q4H PRN Pain 11/10/19 07/25/22 01/09/22 History aspirin 81 mg tablet,delayed 81 mg PO DAILY 11/10/19 07/25/22 07/23/22 History release ergocalciferol (vitamin D2) 1,250 1,250 mcg PO Q7D 11/10/19 07/25/22 07/22/22 History mcg (50,000 unit) capsule rosuvastatin 10 mg tablet 10 mg PO DAILY 11/10/19 07/25/22 07/23/22 History tramadol 50 mg tablet 50 mg PO TID PRN Pain 11/10/19 07/25/22 01/09/22 History losartan 25 mg tablet 25 mg PO DAILY 01/28/21 07/25/22 07/23/22 History coenzyme Q10 100 mg capsule 100 mg PO BID 01/10/22 07/25/22 07/23/22 History levothyroxine 50 mcg tablet 50 mcg PO DAILY 07/25/22 07/25/22 07/23/22 History venlafaxine 75 mg capsule,extended 75 mg PO DAILY 07/25/22 07/25/22 07/23/22 History release 24 hr Allergies Allergy/AdvReac Type Severity Reaction Status Date / Time amoxicillin Allergy Mild rash Verified 01/24/22 09:57 PFSH Acute PFSH: Medical History (Updated 07/25/22 @ 17:20 by Adebayo Erickson MD) Cervical stenosis (uterine cervix) GERD (gastroesophageal reflux disease) Hyperlipemia Hypertension Hypothyroidism Proximal phalanx fracture of finger RLQ abdominal pain Surgical History H/O colonoscopy yrs ago H/O esophagogastroduodenoscopy H/O tubal ligation Status post laparoscopic cholecystectomy (01/07/20) Family History Father Cancer Mother Diabetes Denies family history of Anesthesia complication Bleeding disorder Social History Smoking and tobacco status: never smoked Substance/Drug Use: never Vitals/I&O/Wt Last Vital Signs Temp 97.6 F 07/25/22 12:27 Pulse 69 07/25/22 12:27 Resp 18 07/25/22 12:27 BP 127/63 07/25/22 12:27 Pulse Ox 99 07/25/22 12:27 O2 Del Method Room Air 07/25/22 12:27 Weight last 48 hrs Weight 66.678 kg Physical Exam Narrative: General: Patient is awake and alert. Very pleasant. Head: Normocephalic. Atraumatic. EOM intact. Neck: No JVD. Cardiovascular: RRR. No gallops. No murmurs. No peripheral edema. Lungs: Clear to auscultation, no use of accessory muscles, no crackles or wheezes. Skin: No jaundice. No rashes. Abdomen: Normal bowel sounds, abdomen soft and nontender. Genito Urinary: Genital exam not performed since complaints not related. Rectal: Rectal exam not performed since no symptoms indicated blood loss. Extremities: No cyanosis or clubbing. Musculoskeletal: 5/5 strength, normal range of motion, no swollen or erythematous joints. Neurological: Moves all 4 extremities. No myoclonus. Data 07/25/22 13:40 07/25/22 13:40 A&P Assessment and plan (1) Chest pain: Bedrest to reduce myocardial oxygen demand Telemetry monitoring Trend troponins Continue home aspirin Continue statin NTG PRN TTE MPS tomorrow NPO after midnight (2) Hypertension: BP is elevated in ED, continue to monitor Continue ACEI (3) Hyperkalemia: Mild, continue to monitor (4) Hypothyroidism: Continue Synthroid (5) Hyperlipemia: Continue statin Plan DVT ppx: Low risk Code Status: Full Code Attestations Medical Necessity Statement*: Patient presents with chest pain concerning for unstable angina with expected workup and treatment not to cross 2 midnights. Coding Level of Care Code Acute Code for [facility] Fwd Diagnoses Chest pain R07.9 Hypertension I10 Hyperkalemia E87.5 Hypothyroidism E03.9 Hyperlipemia E78.5
--- NOTE | 2022-07-25 17:00 | ECG_ITS ---
[facility] Test Date: 2022-07-26 Pat Name: Danyel Cavanaugh Department: Room: Gender: Female Draw End Hand: : 1940 Requested By: Adebayo Luciano Order Number: [id number] Crystal MD: Sultana Finney M.D. Interpretive Statements NAME OF STUDY: LEXISCAN SESTAMIBI STRESS TEST INDICATION: Chest Pain, PROCEDURE: At the baseline, the EKG revealed sinus bradycardia with a normal ST Ts. The baseline heart was 59 bpm with a blood pressue of 122/62 mm of Hg Lexiscan was infused over a period of 20 seconds. A total of 0.4 milligrams of Lexiscan was infused. The stress phase was continued for a total of 5 minutes. Heart rate at the end of the stress phase was 78 bpm with a blood pressure 108/53 mm of Hg. The EKG at the peak infusion revealed no significant changes. Sestamibi was injected 20 seconds after the Lexiscan infusion. Heart rate at the end of the recovery phase was 75 bpm with a blood pressure of 105/53 mm of Hg. CONCLUSION: 1. No significant EKG changes with the LexiScan infusion 2. No LexiScan induced chest pain or cardiac arrhythmia 3. Normal blood pressure and heart rate response 4. Sestamibi/sestamibi perfusion scan pending; see separate report. Electronically Signed On 07-28-2022 7:14:54 CDT by Sultana Finney M.D. [email or web address]
--- NOTE | 2022-07-25 17:00 | USCV_ITS ---
Danyel Cavanaugh Age: 82 Gender: F : 1940 Exam Date: 07/25/2022 20:24 Ordering Phys: Adebayo Erickson MD Technologist: KARTHIK Exam Location: [facility] Indication: chest pain, history of HTN, hyperlipidemia. No history of cardiac intervention per patient. BP: 127 / 63 HR: 70 Rhythm: Sinus Technical Quality: Adequate MEASUREMENTS (Male / Female) Normal Values 2D ECHO LV Diastolic Diameter PLAX 4.0 cm 4.2 - 5.9 / 3.9 - 5.3 cm LV Systolic Diameter PLAX 2.6 cm IVS Diastolic Thickness 1.1 cm 0.6 - 1.0 / 0.6 - 0.9 cm IVS Systolic Thickness 1.1 cm LVPW Diastolic Thickness 1.3 cm 0.6 - 1.0 / 0.6 - 0.9 cm LVPW Systolic Thickness 1.8 cm LVOT Diameter 1.9 cm LV Ejection Fraction 2D Teich 65.5 % LV Ejection Fraction MOD 2C 55.9 % LV Ejection Fraction 2C AL 56.2 % LA Diameter 3.0 cm LA Width 2.9 cm LA Height 4.5 cm RA Width 3.0 cm RA Height 4.1 cm Aorta at Sinotubular Diameter 3.0 cm IVC Diameter 1.4 cm M-MODE Aortic Annulus Diameter 3.0 cm LA Ao Ratio MM 0.9 MV E Point Septal Separation 0.5 cm DOPPLER AV Peak Velocity 124.0 cm/s LVOT Peak Velocity 78.0 cm/s AV Area Cont Eq vti 1.9 cm squared AV Area Cont Eq pk 1.8 cm squared MV Area PHT 2.7 cm squared Mitral E to A Ratio 0.7 MV E' Velocity 37.5 cm/s Mitral E to MV E' Ratio 12.6 Mitral E to LV E' Lateral Ratio 12.3 Mitral E to LV E' Septal Ratio 12.8 TV Peak E Velocity 36.0 cm/s PV Peak Velocity 74.0 cm/s RV Acceleration Time 0.1 s RV Ejection Time 0.3 s RV AcT/ET 0.3 FINDINGS Left Ventricle Normal left ventricular size and systolic function, EF 62 %. No regional wall motion abnormalities. Grade I/IV diastolic dysfunction (abnormal relaxation filling pattern), normal to mildly elevated filling pressures. Right Ventricle The right ventricle is normal in size and function. Right Atrium The right atrium is normal in size. Left Atrium The left atrium is normal in size. Mitral Valve No gross abnormalities noted Aortic Valve Thickened aortic valve. Tricuspid Valve Trace tricuspid valve regurgitation. Pulmonic Valve Pulmonic valve not well visualized. Pericardium Normal pericardium without effusion. Aorta Normal ascending aorta dimension. IVC Normal inferior vena cava. CONCLUSIONS Normal left ventricular size and systolic function, EF 62 %. No regional wall motion abnormalities. Grade I/IV diastolic dysfunction (abnormal relaxation filling pattern), normal to mildly elevated filling pressures. Thickened aortic valve. Trace tricuspid valve regurgitation. There is no pericardial effusion. There are no intracardiac masses. No similar previous studies are available for comparison Dr Sultana Finney MD [facility] (Electronically Signed) Final Date: 25 Jul 2022 21:43 S
--- NOTE | 2022-07-25 18:41 | ECG_ITS ---
[facility] Test Date: 2022-07-25 Pat Name: Danyel Cavanaugh Department: Room: 104 Gender: Female Medical Artist: : 1940 Requested By: Hiram Turcios Order Number: [id number] Crystal MD: Jeffrey Bautista M.D. Measurements Intervals Garnett Rate: 60 P: 54 MD: 175 QRS: 48 QRSD: 84 T: 58 QT: 404 QTc: 406 Interpretive Statements SINUS RHYTHM Compared to ECG 07/25/2022 16:05:20 Sinus bradycardia no longer present Electronically Signed On 07-26-2022 7:19:59 CDT by Jeffrey Bautista M.D. [id number]
[2022-07-25 19:44] VITALS: BP 127/63; PULSE 69; RESP 18; TEMP 36.4; O2SAT 99
[2022-07-25 19:52] VITALS: BP 194/86; PULSE 71; RESP 22; TEMP 36.7; O2SAT 97
[2022-07-25 20:28] LABS: Troponin 5 6HR 9.08 ng/L (0-10)
[2022-07-25 20:33] LABS: Troponin 5 6HR Delta 2.08 ng/L (0-12)
[2022-07-25 21:16] VITALS: RESP 20; O2SAT 97
[2022-07-25] MEDS: morphine 4 mg/mL SDV 1 mL 2 MG IVP (21:16)
[2022-07-25] MEDS: ondansetron 4 MG Tablet PO (21:25)
[2022-07-25] MEDS: nitroglycerin 0.4 mg sublingual Tablet SUBLINGUAL (21:41)
[2022-07-25 22:00] VITALS: PULSE 69
[2022-07-25 23:39] VITALS: BP 111/49; PULSE 65; RESP 13; O2SAT 95
[2022-07-26] VITALS (105 sets, daily range): BP systolic 116–126; BP diastolic 52–68; PULSE 51–80; RESP 11–26; TEMP 36.9; O2SAT 91–95
[2022-07-26] MEDS: regadenoson 0.4 Mg/5 ml Syringe IVP (07:26)
[2022-07-26] MEDS: losartan 50 mg Tablet 25 MG PO (08:25)
[2022-07-26] MEDS: atorvastatin 40 mg Tablet PO (08:25)
[2022-07-26] MEDS: aspirin 81 mg EC Tablet PO (08:25)
[2022-07-26] MEDS: levothyroxine 50 mcg Tablet PO (08:25)
[2022-07-26] MEDS: venlafaxine ER (24HR) 75 mg Capsule PO (08:25)
[2022-07-26 09:22] LABS: Add Urine Microscopic? YES; Bilirubin Urine Neg (Negative); Blood Urine Neg (Negative); Glucose Urine UA Norm (Normal); Ketones Urine Negative (Negative); Leukocyte Esterase Urine 2+ (Negative); Nitrate Urine Positive (Negative); Protein Urine Neg (Negative); Specific Gravity, Urine 1.015 (1.005-1.030); Urine Appearance Cloudy (CLEAR); Urine Color Yellow (Yellow); Urobilinogen Urine Norm (Negative); pH Urine 6 (5-7)
[2022-07-26 09:23] LABS: Add Urine Culture? Yes; Bacteria Urine 2+ /hpf; RBC Urine 0-4 /hpf (0-2); Squamous Epithelial Cell Urine 0-4 /hpf (0-5); WBC Urine 25-40 /hpf (0-5)
[2022-07-26] MEDS: cefTRIAXone 1,000 MG in sodium chloride 0.9% (plus) 50 ML 100 MG IV (10:34)
--- NOTE | 2022-07-26 16:32 | PM.DCS ---
Discharge Providers Date of Admission: 07/25/22 16:57 Date of Discharge: July 26, 2022 Attending Provider at Admission: Adebayo Erickson MD Attending Provider at Discharge: Adebayo Erickson MD Consults: None Primary Care Provider: Karen Álvarez Diagnoses at Discharge Discharge Diagnosis (1) Chest pain: Status: Inactive (2) Hypertension: Status: Inactive (3) Hyperkalemia: Status: Resolved (4) Hypothyroidism: Status: Inactive (5) Hyperlipemia: Status: Inactive (6) UTI (urinary tract infection): Status: Acute Reason for Visit Reason for Visit: Chest Pain Hospital Course Hospital Course Danyel Cavanaugh is a 82 year old female with a past medical history significant for GERD, HLD, hypothyroidism, and cervical stenosis who presents to the emergency department with severe chest pain.?Acute coronary syndrome was considered and ruled out with serial troponin, EKG, and telemetry. She underwent cardiac stress test which was negative for evidence of reversible ischemia. Symptoms improved and patient discharged to home in stable condition. Physical Exam Narrative: General: Patient is awake. Alert. NAD. Head: Normocephalic. Atraumatic. Neck: No JVD. Cardiovascular: RRR. No gallops. No murmurs. Lungs: Non-labored. No use of accessory muscles, no crackles or wheezes. Skin: No jaundice. No rashes. Abdomen: Normal bowel sounds, abdomen soft. Extremities: No cyanosis or clubbing. Musculoskeletal: No swollen or erythematous joints. Neurological: Moves all 4 extremities. No myoclonus. Discharge Data Studies Completed and Pending Completed Studies During Hospitalization Category Date Time Status Cardiac Stress Test MIBI [Sestamibi Stress Test Request Exams 07/25/22 17:00 Draft ] Stat XR chest 1V portable [id number] Stat Exams 07/25/22 12:41 Completed NM ramon perf SPECT r/s* [id number] Routine Nuc Med 07/26/22 19:50 Completed CV. echo complete* [id number] Stat Ultrasound 07/25/22 17:00 Completed Pending at discharge Category Date Time Status Urine Culture Routine Lab 07/26/22 08:20 Received Radiology Impressions Chest X-Ray 07/25/22 12:41 IMPRESSION: No acute findings. Laboratory Results WBC 7.8 10^3/uL (4.0-10.0) 07/25/22 13:40 RBC 4.07 10^6/uL (4.1-5.3) L 07/25/22 13:40 Hgb 12.5 g/dL (11.5-15.3) 07/25/22 13:40 Hct 38.9 % (37.0-47.0) 07/25/22 13:40 MCV 95.6 fl (81-99) 07/25/22 13:40 MCH 30.7 pg (28.0-34.0) 07/25/22 13:40 MCHC 32.1 g/dL (30.0-36.0) 07/25/22 13:40 RDW 13.1 % (12.1-15.1) 07/25/22 13:40 Plt Count 278 10^3/cmm (130-400) 07/25/22 13:40 MPV 9.7 fL (7.4-10.4) 07/25/22 13:40 Neut % (Auto) 58.4 % 07/25/22 13:40 Lymph % (Auto) 33.6 % 07/25/22 13:40 Frederick % (Auto) 6.7 % 07/25/22 13:40 Eos % (Auto) 0.0 % 07/25/22 13:40 Baso % (Auto) 0.8 % 07/25/22 13:40 Neut # (Auto) 4.55 10^3/uL (1.8-7.7) 07/25/22 13:40 Lymph # (Auto) 2.6 10^3/uL (0.8-4.8) 07/25/22 13:40 Frederick # (Auto) 0.5 10^3/uL (0.2-0.9) 07/25/22 13:40 Eos # (Auto) 0.0 10^3/uL (0.0-0.8) 07/25/22 13:40 Baso # (Auto) 0.1 10^3/uL (0.0-0.1) 07/25/22 13:40 Nucleated RBC % (auto) 0 % 07/25/22 13:40 Nucleated RBCs # 0.0 /100WBC 07/25/22 13:40 Sodium 141 mmol/L (136-145) 07/25/22 13:40 Potassium 5.2 mmol/L (3.5-5.1) H 07/25/22 13:40 Chloride 105 mmol/L (98-107) 07/25/22 13:40 Carbon Dioxide 26 mmol/L (22-29) 07/25/22 13:40 Anion Gap 15.2 (5-19) 07/25/22 13:40 BUN 22 mg/dL (8-23) 07/25/22 13:40 Creatinine 0.7 mg/dL (0.5-0.9) 07/25/22 13:40 GFR Calculation Not Reportable 07/25/22 13:40 Glucose 96 mg/dL (65-115) 07/25/22 13:40 Calculated Osmolality 295 mOsm/kg (285-295) 07/25/22 13:40 Calcium 9.2 mg/dL (8.5-10.5) 07/25/22 13:40 Total Bilirubin 0.3 mg/dL (0.15-1.2) 07/25/22 13:40 AST 21 U/L (0-32) 07/25/22 13:40 ALT 15 U/L (0-33) 07/25/22 13:40 Alkaline Phosphatase 61 U/L (35-105) 07/25/22 13:40 Troponin T Baseline 7 ng/L (0-10) 07/25/22 13:40 Troponin T 120 Minute 8.53 ng/L (0-10) 07/25/22 16:07 Delta Troponin T 1.53 ABS# (0-10) 07/25/22 16:07 Troponin T Hi Sens 6Hr 9.08 ng/L (0-10) 07/25/22 20:00 Troponin T Hi Sens 6Hr Delta 2.08 ng/L (0-12) 07/25/22 20:00 NT-Pro-B Natriuret Pep 142 pg/mL (0-450) 07/25/22 13:40 Total Protein 7.3 g/dL (6.6-8.7) 07/25/22 13:40 Albumin 4.6 g/dL (3.5-5.2) 07/25/22 13:40 Globulin 2.7 g/dL (1.3-4.6) 07/25/22 13:40 Urine Color Yellow (Yellow) 07/26/22 08:20 Urine Appearance Cloudy (CLEAR) A 07/26/22 08:20 Urine pH 6 (5-7) 07/26/22 08:20 Ur Specific [place] 1.015 (1.005-1.030) 07/26/22 08:20 Urine Protein Neg (Negative) 07/26/22 08:20 Urine Glucose (UA) Norm (Normal) 07/26/22 08:20 Urine Ketones Negative (Negative) 07/26/22 08:20 Urine Blood Neg (Negative) 07/26/22 08:20 Urine Nitrate Positive (Negative) H 07/26/22 08:20 Urine Bilirubin Neg (Negative) 07/26/22 08:20 Urine Urobilinogen Norm mg/dL (Negative) 07/26/22 08:20 Ur Leukocyte Esterase 2+ (Negative) H 07/26/22 08:20 Urine RBC 0-4 /hpf (0-2) H 07/26/22 08:20 Urine WBC 25-40 /hpf (0-5) H 07/26/22 08:20 Ur Squamous Epith Cells 0-4 /hpf (0-5) H 07/26/22 08:20 Amorphous Sediment Not Reportable 07/26/22 08:20 Urine Bacteria 2+ /hpf (NONE) H 07/26/22 08:20 Vitals Last Vital Signs Temp 98.1 F 07/25/22 19:52 Pulse 80 07/26/22 15:02 Resp 16 07/26/22 12:30 BP 116/65 07/26/22 13:30 Pulse Ox 95 07/26/22 08:45 O2 Del Method Room Air 07/26/22 08:45 Discharge Plan Discharge Patient Disposition: Home Condition: Stable Prescriptions: New cefdinir 300 mg capsule 300 mg PO BID 7 Days Qty: 14 0RF Continued acetaminophen 500 mg capsule 1,000 mg PO Q4H PRN (Reason: Pain) Hold Instructions: Resume on 01/23/22. aspirin 81 mg tablet,delayed release (DR/EC) 81 mg PO DAILY ergocalciferol (vitamin D2) 1,250 mcg (50,000 unit) capsule 1,250 mcg PO Q7D Rx Instructions: On Saturdays rosuvastatin 10 mg tablet 10 mg PO DAILY tramadol 50 mg tablet 50 mg PO TID PRN (Reason: Pain) losartan 25 mg tablet 25 mg PO DAILY coenzyme Q10 100 mg Capsule 100 mg PO BID venlafaxine 75 mg capsule,extended release 24hr 75 mg PO DAILY levothyroxine 50 mcg Tablet 50 mcg PO DAILY Discharge Orders: Discharge Order (Routine); Ordered 07/26/22 Ordered By: Adebayo Erickson Referrals: Karen Álvarez FNP [Primary Care Provider] - 1-3 days Discharge Diet: Advance as tolerated and Usual diet Discharge Activity: Resume usual activity and Increase activity as tolerated Patient Instructions: Cefdinir (By mouth), Urinary Tract Infection in Women (DC), Opioid Safety Plan of Treatment: 1. Take medications as prescribed. 2. Increase activity as tolerated. 3. Follow up with primary care physician. Discharge Attestations Time Spent in Discharge Care*: greater than 30 min Quality Metrics Clinical Quality Measures [ No reported AMI, CVA or VTE this stay] Coding Level of Care Code Acute Code for Chg Fwd Diagnoses Chest pain R07.9 Hypertension I10 Hyperkalemia E87.5 Hypothyroidism E03.9 Hyperlipemia E78.5 UTI (urinary tract infection) N39.0
--- NOTE | 2022-07-26 19:50 | NMCV_ITS ---
NM ramon perf SPECT r/s* [id number] Danyel Cavanaugh Age: 82 Gender: F : 1940 Exam Date: 07/26/2022 19:50 Ordering Phys: Adebayo Erickson MD Technologist: TIERNEY Benjamin Exam Location: [facility] Indications: CHEST PAIN STRESS TEST Please [facility] IMAGE PROTOCOL Rest/Stress 1 Lexiscan Day Radiopharmaceutical Dose (mCi) Administration Site Administered by Rest: Tc-99m 10.5 IV TIERNEY Delgado Sestamibi Stress:Tc-99m 32.6 IV TIERNEY Delgado Sestamibi Rest: 26-Jul-2022 60 Discovery 630 Stress: 26-Jul-2022 30 Discovery 630 Images obtained in supine and prone position. 0.4mg Lexiscan. SPECT RESULTS Technical Quality: Excellent Raw Data Analysis: Normal Image Corrections: No attenuation or motion correction applied Summed Stress Score: 0 Summed Rest Score: 0 Summed Difference Score: 0 PERFUSION FINDINGS Fairly uniform myocardial tracer uptake with no significant perfusion abnormalities FUNCTIONAL RESULTS (calculated via Gated SPECT) Stress Image LV EF (%): 88 Stress EDV (mL):51 TID: 0.88 Stress ESV (mL):6 FUNCTIONAL FINDINGS: Segmental wall motion analysis revealing no gross wall motion abnormalities IMPRESSIONS 1. Unremarkable Myocardial perfusion imaging 2. Normal LV ejection fraction of 88%. 3. LV wall motion analysis revealing no gross wall motion abnormalities. 4. Normal LV volume. Low probability for coronary ischemia, based on the above findings No similar previous studies are available for comparison Dr Sultana Finney MD [facility] (Electronically Signed) Final Date: 26 Jul 2022 11:23 S
== END 2022-07-26 16:47 | disposition home or self-care (01) ==
LOC: ER 18:31 → CSU 18:34
PROVIDERS: Family Medicine; Admitting Provider Internal Medicine; Emergency Provider Emergency Medicine; PCP Nurse Practitioner Family; Visit Provider Internal Medicine
DX: R07.9 Chest pain, unspecified (principal); I10 Essential (primary) hypertension; E78.5 Hyperlipidemia, unspecified; E03.9 Hypothyroidism, unspecified; K21.9 Gastro-esophageal reflux disease without esophagitis; E87.5 Hyperkalemia; R00.1 Bradycardia, unspecified; Z79.82 Long term (current) use of aspirin; M79.602 Pain in left arm
CPT/HCPCS: 36415; 71045; 78452; 80053; 81001; 83880; 84484; 85025; 87077; 87086; 87186; 93005; 93017; 93306; 96365; 96374; 96375; 96376; 99285; A9500; G0378; J0696; J2270; J2785; Q0162

== ENCOUNTER 2022-09-26 12:21 | Observation (INO) | payer MEDICARE, BC, SELFPAY ==
[2022-09-22 09:28] VITALS: BMI 26.0
[2022-09-22 10:16] LABS: Basophils # 0.1 10^3/uL (0.0-0.1); Eosinophils # 0.1 10^3/uL (0.0-0.8); Eosinophils % 1.7 %; Hematocrit 35.9 % (37.0-47.0); Hemoglobin 11.9 g/dL (11.5-15.3); Lymphocytes # 2.4 10^3/uL (0.8-4.8); Lymphocytes % 39.3 %; Mean Corpuscular HGB Conc 33.1 g/dL (30.0-36.0); Mean Corpuscular Hemoglobin 32.2 pg (28.0-34.0); Monocytes # 0.5 10^3/uL (0.2-0.9); Monocytes % 8.6 %; Neutrophils # 2.96 10^3/uL (1.8-7.7); Neutrophils % 49.1 %; Nucleated Red Blood Cells % 0 %; Platelet Count 242 10^3/cmm (130-400); Red Cell Distribution Width 12.8 % (12.1-15.1)
--- NOTE | 2022-09-22 10:26 | ANES.PREANE2 ---
Pre-Anesthetic Assessment Height/Weight: Height 1.6 m Weight 66.678 kg Operation Date: 09/26/22 10:25 Proposed Procedures p Laparoscopic assisted vaginal hysterectomy, bilateral salpingo-oophorectomy 76086,R10.2,D25.9(Not Applicable) - Narcisa Olivas MD Familial anesthetic complications: none Was Beta Sanya taken within 24 hours: N/A Was Clonidine taken within 24 hours: N/A Social No alcohol and No tobacco Exam alert, oriented x 3, clear to auscultation bilaterally and regular rate & rhythm Airway Submandibular: within normal limits Cervical ROM: within normal limits Mallampati: Class II Dentition: false CV/HEM Hypertension Metabolic Hyperlipidemia and Thyroid Disease Anesthetic Plan ASA status: 2 Anesthesia: General Medications/Allergies Home Medications Medication Instructions Recorded Confirmed Last Taken Type acetaminophen 500 mg capsule 1,000 mg PO Q4H PRN Pain 11/10/19 09/22/22 01/09/22 History aspirin 81 mg tablet,delayed 81 mg PO DAILY 11/10/19 09/22/22 07/23/22 History release ergocalciferol (vitamin D2) 1,250 1,250 mcg PO Q7D 11/10/19 09/22/22 07/22/22 History mcg (50,000 unit) capsule rosuvastatin 10 mg tablet 10 mg PO DAILY 11/10/19 09/22/22 07/23/22 History tramadol 50 mg tablet 50 mg PO TID PRN Pain 11/10/19 09/22/22 01/09/22 History losartan 25 mg tablet 25 mg PO DAILY 01/28/21 09/22/22 07/23/22 History coenzyme Q10 100 mg capsule 100 mg PO DAILY 01/10/22 09/22/22 07/23/22 History levothyroxine 50 mcg tablet 50 mcg PO DAILY 07/25/22 09/22/22 07/23/22 History Allergies Allergy/AdvReac Type Severity Reaction Status Date / Time amoxicillin Allergy Mild rash Verified 09/22/22 08:22 [facility] Anesthesia Medical History Cervical stenosis (uterine cervix) Chest pain GERD (gastroesophageal reflux disease) Hyperlipemia Hypertension Hypothyroidism Proximal phalanx fracture of finger RLQ abdominal pain Surgical History H/O colonoscopy yrs ago H/O esophagogastroduodenoscopy H/O tubal ligation Status post laparoscopic cholecystectomy (01/07/20) Family History Father Cancer Mother Diabetes Denies family history of Anesthesia complication Bleeding disorder Social History Smoking and tobacco status: never smoked Substance/Drug Use: never Data Anesthesia 09/22/22 09:55 09/22/22 09:55 Short CBC 09/22/22 Range/Units 09:55 WBC 6.0 (4.0-10.0) 10^3/uL Hgb 11.9 (11.5-15.3) g/dL Hct 35.9 L (37.0-47.0) % MCV 97.0 (81-99) fl Plt Count 242 (130-400) 10^3/cmm Neut % (Auto) 49.1 % Neut # (Auto) 2.96 (1.8-7.7) 10^3/uL Cardiac Studies: Echocardiogram 07/25/22 Sestamibi Stress Test (Cardiology) 07/25/22
[2022-09-22 10:36] LABS: Anion Gap 13.4 (5-19); Blood Urea Nitrogen 20 mg/dL (8-23); Calcium 9.1 mg/dL (8.5-10.5); Carbon Dioxide 26 mmol/L (22-29); Chloride 112 mmol/L (98-107); Glucose 84 mg/dL (65-115); Osmolality Calculated 304 mOsm/kg (285-295); Potassium 5.4 mmol/L (3.5-5.1); Sodium 146 mmol/L (136-145)
[2022-09-26] VITALS (16 sets, daily range): BP systolic 89–167; BP diastolic 40–78; PULSE 58–81; RESP 15–20; TEMP 36.2–36.8; O2SAT 90–98
[2022-09-26] MEDS: CELEcoxib 200 mg Capsule 400 MG PO (09:13)
[2022-09-26] MEDS: phenazopyridine 100 mg Tablet 200 MG PO ×3 (09:13→20:48)
[2022-09-26] MEDS: gabapentin 300 mg Capsule PO (09:13)
[2022-09-26] MEDS: scopolamine 1.5 Patch 1 PATCH TRANSDERMA (09:16)
--- NOTE | 2022-09-26 09:17 | ANES.PAUD2 ---
Pre-Anesthetic Update Pre-Anesthetic Assessment: Date of Surgery/Procedure: 09/26/22 Preop Diagnosis: uterine prolapse, chronic pelvic pain Proposed Procedure: Operation Date: 09/26/22 10:25 Proposed Procedures p Laparoscopic assisted vaginal hysterectomy, bilateral salpingo-oophorectomy 54370,R10.2,D25.9(Not Applicable) - Narcisa Olivas MD Any changes to Pre-Anesthetic Assessment?: No Last Intake: Intake Last Liquid Date 09/25/22 Last Liquid Time 21:00 Last Solid Date 09/25/22 Last Solid Time 21:00 Vitals: Temperature 97.2 F L 09/26/22 08:59 Temperature Source Temporal Artery S can 09/26/22 08:59 Pulse Rate 66 09/26/22 08:59 Respiratory Rate 18 09/26/22 08:59 Blood Pressure 167/78 09/26/22 08:59 Blood Pressure Susan n 107 09/26/22 08:59 Pulse Oximetry 97 09/26/22 08:59 Oxygen Delivery Me thod Room Air 09/26/22 09:02 Exam: Pre-Anes Outpt Exam: alert, oriented x 3, clear to auscultation bilaterally and regular rate & rhythm Cardiac Studies: Echocardiogram 07/25/22 Sestamibi Stress Test (Cardiology) 07/25/22
[2022-09-26] MEDS: acetaminophen 1,000 MG/100 ML PIGGYBACK 400 MG IV (09:36)
[2022-09-26] MEDS: sodium chloride 0.9% 1,000 ML 30 ML IV (09:51)
--- NOTE | 2022-09-26 10:29 | PM.OPHPUD ---
Labor & Delivery H&P Update Date of Procedure: September 26, 2022 Date H&P Performed: 09/22/22 H&P update information: I have reviewed H&P completed within last 30 days, I have examined patient prior to procedure and No changes to prior documentation Admission Diagnosis: Preop diagnosis: uterine prolapse, chronic pelvic pain Planned procedure: Operation Date: 09/26/22 10:25 Proposed Procedures p Laparoscopic assisted vaginal hysterectomy, bilateral salpingo-oophorectomy 30311,R10.2,D25.9(Not Applicable) - Narcisa Olivas MD Related Problem List Diagnoses (1) Uterine prolapse: (2) Pelvic pain:
[2022-09-26] MEDS: ceFAZolin 2,000 MG in sodium chloride 0.9% (plus) 50 ML 100 MG IV ×2 (10:40→18:53)
[2022-09-26] MEDS: vasopressin 20 unit/mL INJ (11:50)
--- NOTE | 2022-09-26 12:33 | P.OP_ITS ---
Operative Report Date of procedure: September 26, 2022 Pre-op diagnosis: Preop Diagnosis uterine prolapse, chronic pelvic pain Post-op diagnosis: same Post-op findings: normal appearing uterus, enlarged right ovary Procedure done: LAVH, BSO Specimens removed/disposition: uterus, tubes and ovaries to pathology Surgeon: Narcisa Olivas Anesthesia: General Estimated blood loss (mL): 25 IV fluids (mL): 1,200 Urine output (mL): 100 Complications: none Condition: stable Disposition: PACU Procedure: The patient was taken to the operating room where general anesthesia was administered and found to be adequate. She was prepped and draped in the normal sterile fashion in the dorsal lithotomy position in [facility]. A Cervantes catheter was placed. A weighted speculum was placed into the vagina and the anterior lip of the cervix was grasped with a single tooth tenaculum. The Zumi uterine manipulator was placed. The weighted speculum was removed. The gloves were changed and attention was turned to the abdomen. A 5 mm supraumbilical incision was made. Using a 5 mm port with the camera, the port was placed into the abdomen. The abdomen was insufflated. Two low, lateral 5 mm ports were placed on the left and right under direct visualization from the camera. The right tube was grasped and elevated. Using the laparoscopic cautery, the infundibulopelvic ligament was cauterized following the curve of the fallopian tube up to the cornua of the uterus. This was performed the same way on the left. The uteroovarian ligaments as well as the round ligaments were ligated. Attention was then turned to the vaginal portion of the procedure. The weighted speculum was placed into the vagina. The zumi manipulator was removed. The single tooth tenaculum was removed and replaced with the june's tenaculum. 10 mL of dilute Pitressin was injected at the vesicovaginal junction. A circumferential incision was made at the vesicovaginal junction and the vaginal mucosa reflected cephalad. The posterior peritoneum was entered sharply with the Metzenbaum scissors and the long weighted speculum replaced. Using the Misti clamps the uterosacral ligaments were clamped cut and suture- ligated. The anterior peritoneum was entered sharply with the metzenbaum scissors. Then sequentially the uterine arteries and cardinal ligaments were clamped cut and suture-ligated. A single-tooth tenaculum was used to deliver the uterus. The remaining segement of the utero-ovarian ligaments were clamped cut and suture-ligated bilaterally and the specimen was removed. There was good hemostasis with only mild bleeding from the cuff. The peritoneum was closed with a pursestring using 2-0 Vicryl. The vaginal cuff was closed with 0 Vicryl in a running locked pattern incorporating the uterosacral ligaments into the lateral aspects of the vaginal cuff. The Cervantes catheter was removed and the cystoscope advanced into the bladder. T he patient was given pyridium and bilateral spill was noted. There were no injuries or deficits noted in the bladder. The cystoscope was removed and the Cervantes was replaced. Vaginal packing was placed for good hemostasis. The gloves and gowns were changed and attention was turned to the abdomen. The ports were closed with 2-0 monocryl with skin glue. The patient tolerated the procedure well. Sponge lap and needle counts were correct x3. She was taken to the recovery room in stable condition.
[2022-09-26] MEDS: dextrose 5%-lactated ringers 1,000 ML 125 ML IV ×2 (13:48→21:02)
[2022-09-26] MEDS: ketorolac 30 mg/mL INJ IVP ×2 (13:48→18:53)
--- NOTE | 2022-09-26 13:53 | ANE.PACU2 ---
Inpatient post-anesthesia follow up: Airway intact: Yes Vital signs: Temperature 97.3 F Pulse Rate 60 Respiratory Rate 16 Blood Pressure 106/48 Pulse Oximetry 96 Oxygen Delivery Me thod Nasal Cannula Oxygen Flow Rate 2 Fraction of Inspir ed Oxygen Hydration adequate: Yes Nausea and vomiting: Yes Pain level: 1 Mental status: Baseline
[2022-09-26] MEDS: HYDROcodone-acetaminophen 5-325 mg Tablet PO (16:30)
[2022-09-26] MEDS: simethicone 80 mg Chew PO (20:48)
[2022-09-26] MEDS: sodium chloride 0.9% 500 ML IV (22:36)
[2022-09-27 01:45] VITALS: BP 121/64; PULSE 75; TEMP 36.6; O2SAT 97
[2022-09-27] MEDS: ketorolac 30 mg/mL INJ IVP ×2 (01:50→07:26)
[2022-09-27] MEDS: ceFAZolin 2,000 MG in sodium chloride 0.9% (plus) 50 ML 100 MG IV (01:51)
[2022-09-27 05:00] VITALS: BP 126/68; PULSE 70; RESP 18; TEMP 36.7; O2SAT 98
--- NOTE | 2022-09-27 05:59 | PC.NURSE ---
Vaginal packing removed. Patient tolerated procedure well. Scant bleeding.
[2022-09-27 06:08] LABS: Hematocrit 31.3 % (37.0-47.0); Hemoglobin 9.7 g/dL (11.5-15.3); Mean Corpuscular Hemoglobin 31.1 pg (28.0-34.0); Mean Corpuscular Volume 100.3 fl (81-99); Mean Platelet Volume 10.2 fL (7.4-10.4); Platelet Count 190 10^3/cmm (130-400); Red Blood Count 3.12 10^6/uL (4.1-5.3); Red Cell Distribution Width 12.9 % (12.1-15.1); White Blood Count 10.1 10^3/uL (4.0-10.0)
[2022-09-27] MEDS: HYDROcodone-acetaminophen 5-325 mg Tablet PO (08:19)
[2022-09-27] MEDS: phenazopyridine 100 mg Tablet 200 MG PO (08:20)
--- NOTE | 2022-09-27 09:23 | PM.DCS ---
Discharge Providers Date of Admission: 09/26/22 12:21 Date of Discharge: September 27, 2022 Attending Provider at Admission: Narcisa Olivas MD Attending Provider at Discharge: Narcisa Olivas MD Primary Care Provider: Karen Álvarez Diagnoses at Discharge Discharge Diagnosis (1) Uterine prolapse: Status: Acute (2) Pelvic pain: Status: Acute Hospital Course Hospital Course The patient was admitted for surgery. She did well postoperatively and was ready for discharge on post op day #1 Physical Exam Narrative: The patient is doing well today. No concerns Const: COMMON NORMALS: no acute distress, average body habitus, patient oriented x3, no limitations, healthy appearing, alert and well nourished GENERAL APPEARANCE: cooperative, comfortable, well kempt and well developed ORIENTATION/CONSCIOUSNESS: Yes awake, Yes oriented to person, Yes oriented to place and Yes oriented to time Resp: COMMON NORMALS: normal respiratory effort EFFORT & INSPECTION: Yes able to speak in complete sentences GI: COMMON NORMALS: Soft to palpation and non-tender PALPATION: Yes Soft to palpation Extremity: COMMON NORMALS: no calf tenderness Neuro: COMMON NORMALS: patient oriented x3 SENSORIUM/ORIENTATION: Yes alert, Yes oriented to person, Yes oriented to place and Yes oriented to time Psych: COMMON NORMALS: mental status grossly normal, Normal thought process present, cooperative, normal affect and speech normal APPEARANCE: Yes well kempt SPEECH: Yes normal speech THOUGHT PROCESS: Normal thought process present Urinary Catheter Management: Cervantes: Cath Placed During This Visit: yes, but has since been removed by the nurse Reason for Continuing Indwelling Catheter: Decision to DC Catheter Urinary Catheter Date of Insertion: 09/26/22 Urinary Catheter Time of Insertion: 11:11 Date Urinary Catheter Removed: 09/27/22 Time Urinary Catheter Discontinued: 05:58 Discharge Data Studies Completed and Pending Pending at discharge Category Date Time Status Urine Culture Routine Lab 09/26/22 11:11 Results Pathology: Surgical [PTH] Routine Pth 09/26/22 12:14 Received Laboratory Results WBC 10.1 10^3/uL (4.0-10.0) H 09/27/22 05:58 RBC 3.12 10^6/uL (4.1-5.3) L 09/27/22 05:58 Hgb 9.7 g/dL (11.5-15.3) L 09/27/22 05:58 Hct 31.3 % (37.0-47.0) L 09/27/22 05:58 MCV 100.3 fl (81-99) H 09/27/22 05:58 MCH 31.1 pg (28.0-34.0) 09/27/22 05:58 MCHC 31.0 g/dL (30.0-36.0) 09/27/22 05:58 RDW 12.9 % (12.1-15.1) 09/27/22 05:58 Plt Count 190 10^3/cmm (130-400) 09/27/22 05:58 MPV 10.2 fL (7.4-10.4) 09/27/22 05:58 Neut % (Auto) 49.1 % 09/22/22 09:55 Lymph % (Auto) 39.3 % 09/22/22 09:55 Fajardo % (Auto) 8.6 % 09/22/22 09:55 Eos % (Auto) 1.7 % 09/22/22 09:55 Baso % (Auto) 1.0 % 09/22/22 09:55 Neut # (Auto) 2.96 10^3/uL (1.8-7.7) 09/22/22 09:55 Lymph # (Auto) 2.4 10^3/uL (0.8-4.8) 09/22/22 09:55 Fajardo # (Auto) 0.5 10^3/uL (0.2-0.9) 09/22/22 09:55 Eos # (Auto) 0.1 10^3/uL (0.0-0.8) 09/22/22 09:55 Baso # (Auto) 0.1 10^3/uL (0.0-0.1) 09/22/22 09:55 Nucleated RBC % (auto) 0 % 09/22/22 09:55 Nucleated RBCs # 0.0 /100WBC 09/22/22 09:55 Sodium 146 mmol/L (136-145) H 09/22/22 09:55 Potassium 5.4 mmol/L (3.5-5.1) H 09/22/22 09:55 Chloride 112 mmol/L (98-107) H 09/22/22 09:55 Carbon Dioxide 26 mmol/L (22-29) 09/22/22 09:55 Anion Gap 13.4 (5-19) 09/22/22 09:55 BUN 20 mg/dL (8-23) 09/22/22 09:55 Creatinine 0.8 mg/dL (0.5-0.9) 09/22/22 09:55 GFR Calculation Not Reportable 09/22/22 09:55 Glucose 84 mg/dL (65-115) 09/22/22 09:55 Calculated Osmolality 304 mOsm/kg (285-295) H 09/22/22 09:55 Calcium 9.1 mg/dL (8.5-10.5) 09/22/22 09:55 Blood Type A Positive 09/26/22 09:34 Rho(D) Type Positive 09/26/22 09:34 Antibody Screen Negative 09/26/22 09:34 Vitals Last Vital Signs Temp 98.1 F 09/27/22 05:00 Pulse 70 09/27/22 05:00 Resp 18 09/27/22 05:00 BP 126/68 09/27/22 05:00 Pulse Ox 98 09/27/22 05:00 O2 Del Method Nasal Cannula 09/27/22 05:00 O2 Flow Rate 2.5 09/27/22 05:00 Discharge Plan Discharge Patient Disposition: Home Condition: Stable Prescriptions: New docusate sodium 100 mg Capsule 100 mg PO BID Qty: 60 0RF ibuprofen 800 mg Tablet 800 mg PO Q8H Qty: 30 0RF hydrocodone-acetaminophen 5-325 mg Tablet 1 tab PO Q4H PRN (Reason: Moderate To Severe Pain) Qty: 20 0RF Continued acetaminophen 500 mg capsule 1,000 mg PO Q4H PRN (Reason: Pain) Hold Instructions: Resume on 01/23/22. aspirin 81 mg tablet,delayed release (DR/EC) 81 mg PO DAILY ergocalciferol (vitamin D2) 1,250 mcg (50,000 unit) capsule 1,250 mcg PO Q7D Rx Instructions: On Saturdays rosuvastatin 10 mg tablet 10 mg PO DAILY tramadol 50 mg tablet 50 mg PO TID PRN (Reason: Pain) losartan 25 mg tablet 25 mg PO DAILY coenzyme Q10 100 mg Capsule 100 mg PO DAILY levothyroxine 50 mcg Tablet 50 mcg PO DAILY venlafaxine 75 mg capsule,extended release 24hr 75 mg PO DAILY famotidine 20 mg tablet 20 mg PO BID Discharge Orders: Discharge Order (Routine); Ordered 09/27/22 Ordered By: Narcisa Olivas Referrals: Narcisa Olivas MD [Physician] - 10/02/22 8:45 am (1 week: 10/02/22 @8:45 6 week: 11/06/22 @10:45 ) Patient Instructions: Laparoscopic Hysterectomy (DC), Cystoscopy (DC), OB Discharge Report, OB Food/Drug Interaction Guide, Opioid Safety Discharge Attestations Time Spent in Discharge Care*: less than 30 min Quality Metrics Clinical Quality Measures [ No reported AMI, CVA or VTE this stay] Coding Level of Care Code Acute Code for Chg Fwd Diagnoses Uterine prolapse N81.4 Pelvic pain R10.2
[2022-09-27] MEDS: levothyroxine 50 mcg Tablet PO (09:34)
[2022-09-27] MEDS: venlafaxine ER (24HR) 75 mg Capsule PO (09:34)
[2022-09-27 09:40] VITALS: BP 120/63; PULSE 71; RESP 18; TEMP 36.7; O2SAT 98
[2022-09-27 10:38] VITALS: BP 120/63; PULSE 71; RESP 18; TEMP 36.7; O2SAT 98
== END 2022-09-27 09:50 | disposition home or self-care (01) ==
LOC: OBGYN 12:21
PROVIDERS: Admitting Provider Obstetrics & Gynecology; PCP Nurse Practitioner Family; Visit Provider Obstetrics & Gynecology
PROC: 0UT9FZZ Resection of Uterus, Via Natural or Artificial Opening With Percutaneous Endoscopic Assistance (ICD-10-PCS; CPT 58552; principal; 2022-09-26 10:15)
PROC: 0TJB8ZZ Inspection of Bladder, Via Natural or Artificial Opening Endoscopic (ICD-10-PCS; CPT 52000; 2022-09-26 10:15)
DX: N81.4 Uterovaginal prolapse, unspecified (principal); G89.29 Other chronic pain; R10.2 Pelvic and perineal pain; I10 Essential (primary) hypertension; E78.5 Hyperlipidemia, unspecified; E03.9 Hypothyroidism, unspecified; K21.9 Gastro-esophageal reflux disease without esophagitis; Z79.82 Long term (current) use of aspirin; Z79.891 Long term (current) use of opiate analgesic
CPT/HCPCS: 58552; 36415; 51702; 80048; 85025; 85027; 86850; 86900; 87077; 87086; 87186; 88305; 96374; 96376; G0378; J0131; J0360; J0690; J1100; J1885; J2405; J2704; J2710; J3010; J3490; J7030; J7040; J7121

== ENCOUNTER 2023-04-12 11:56 | Outpatient (CLI) | payer MEDICARE, SELFPAY ==
--- NOTE | 2023-04-12 12:00 | US_ITS ---
WS: [id number] RENAL ULTRASOUND HISTORY: FLANK PAIN COMPARISON: 09/27/2007 TECHNIQUE: 2-D and color Doppler imaging of the kidney submitted. Right kidney: 10.5 cm x 5.4 cm x 5.2 cm. Cortex: 1.5 cm Normal size kidney. Cortical cyst mid kidney 1.7 x 2.5 x 2.3 cm. No obstruction or solid mass. Left kidney: 9.4 cm x 5.0 cm x 4.6 cm. Cortex: 1.6 cm Normal echogenicity with no hydronephrosis or mass. Aorta: Normal. Urinary Bladder: Normal distention. IMPRESSION: 1. Normal size kidneys with no hydronephrosis. 2. Simple RIGHT renal cyst, maximum diameter 2.5 cm.
== END 2023-04-12 11:57 | disposition home or self-care (01) ==
LOC: RAD 11:56
PROVIDERS: PCP Nurse Practitioner Family; Visit Provider Nurse Practitioner Family
DX: R10.9 Unspecified abdominal pain (principal)
CPT/HCPCS: 76770

== ENCOUNTER 2023-05-03 09:17 | Outpatient (CLI) | payer MEDICARE, SELFPAY ==
--- NOTE | 2023-05-03 09:26 | MM_ITS ---
WS: [id number] BILATERAL 3D TOMOSYNTHESIS DIGITAL DIAGNOSTIC MAMMOGRAPHY WITH CAD CLINICAL INFORMATION: GALACTORRHEA NOT ASSOCIATED W/CHILDBIRTH HISTORY: Bilateral nipple discharge COMPARISON: 2020 TECHNIQUE: Bilateral CC, MLO, and ML views. FINDINGS: The breasts are composed of heterogeneous fibroglandular density, which can limit the detection of sm all underlying mass lesions. Incidental punctate and lucent centered calcifications. Bilateral breast ultrasound pending for nipple discharge. No new parenchymal abnormalities. Stable nodularity upper o uter LEFT breast was previously evaluated. ULTRASOUND BREAST BILATERAL TECHNIQUE: Ultrasound bilateral breast focused area of concern. CLINICAL INFORMATION: GALACTORRHEA NOT ASSOCIATED W/CHILDBIRTH COMPARISON: None. FINDINGS: RIGHT BREAST: Ultrasound subareolar RIGHT breast. 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 No cystic or solid lesions to target for biopsy. 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 No cystic or solid lesions to target for biopsy. IMPRESSION: MM/[place] [id number] BI-RADS: 2-Benign FOLLOW UP: 1 Year Follow-up Recommend return to annual screening mammography.
== END 2023-05-03 09:18 | disposition home or self-care (01) ==
LOC: RAD 09:18
PROVIDERS: PCP Nurse Practitioner Family; Visit Provider Nurse Practitioner Family
DX: N64.3 Galactorrhea not associated with childbirth (principal); R92.323 Mammographic fibroglandular density, bilateral breasts; N63.21 Unspecified lump in the left breast, upper outer quadrant
CPT/HCPCS: 76642; 77062; G0279

== ENCOUNTER 2024-07-17 12:44 | Outpatient (CLI) | payer MEDICARE, SELFPAY ==
--- NOTE | 2024-07-17 12:53 | MM_ITS ---
WS: [id number] Bilateral screening 3D tomosynthesis digital mammogram, 07/17/2024 12:54 PM Clinical Data: SCREENING Comparison: 05/03/2023, 01/04/2021, 01/07/2019, 01/01/2018, 12/20/2017, 05/31/2016. Findings: No spiculated masses or clustered calcifications are seen. There are no secondary signs of carcinoma. MM/MM scr BI tomosynthesis [id number] Impression: Negative bilateral mammogram unchanged. Recommend annual screening mammograms. BIRADS: 1 - Negative. FOLLOW UP: 1 Year Follow-up DENSITY: There are scattered areas of fibroglandular density. 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
== END 2024-07-17 12:45 | disposition home or self-care (01) ==
PROVIDERS: PCP Nurse Practitioner Family; Visit Provider Nurse Practitioner Family
DX: Z12.31 Encounter for screening mammogram for malignant neoplasm of breast (principal); R92.323 Mammographic fibroglandular density, bilateral breasts
CPT/HCPCS: 77063; 77067

== ENCOUNTER 2024-10-01 14:15 | Outpatient (CLI) | payer MEDICARE, SELFPAY ==
--- NOTE | 2024-10-01 14:21 | XR_ITS ---
WS: [id number] SCREENING DEXA SCAN [place] CLINICAL INFORMATION: MENOPAUSAL PERIMENOPAUSAL DISORDER COMPARISON: 2021 FINDINGS: The L1-L4 bone mineral density measures 1.050 g/cm2. This corresponds to a T score score of -1.1 and Z score of 0.6. Left femoral neck bone mineral density measures 0.761 g/cm2. This corresponds to a T score of -2.0 and Z score of 0.0. Right femoral neck bone mineral density measures 0.728 g/cm2. This corresponds to a T score -2.2of and Z score of -0.3. Mean femoral neck bone mineral density measures 0.744 g/cm2. This corresponds to a T score of -2.1 and Z score of -0.1. XR/XR DEXA axial skeleton* [id number] IMPRESSION: Osteopenia lumbar spine. Osteopenia femoral necks. Patient's FRAX calculated 10 year probability for major osteoporotic fracture i s 23.1% and osteoporotic hip fracture is 9.4%. Bone mineral density lumbar spine increased 14.1% Bone mineral density femoral necks increased 1.5%
== END 2024-10-01 14:16 | disposition home or self-care (01) ==
LOC: RAD 14:16
PROVIDERS: PCP Nurse Practitioner Family; Visit Provider Nurse Practitioner Family
DX: Z13.820 Encounter for screening for osteoporosis (principal); Z78.0 Asymptomatic menopausal state; M85.89 Other specified disorders of bone density and structure, multiple sites
CPT/HCPCS: 77080

== ENCOUNTER → 2024-10-17 11:38 | Outpatient (BNVA) | payer MEDICARE, SELFPAY | PROVIDERS: PCP Nurse Practitioner Family; Visit Provider Nurse Practitioner Women's Health | DX: R10.2 Pelvic and perineal pain (principal); N95.0 Postmenopausal bleeding; R82.90 Unspecified abnormal findings in urine | CPT/HCPCS: 84315; 87077; 87086; 87184; 87624 ==

== ENCOUNTER → 2024-11-24 10:34 | Outpatient (BNVA) | payer MEDICARE, SELFPAY | PROVIDERS: PCP Nurse Practitioner Family; Visit Provider Nurse Practitioner Women's Health | DX: R30.0 Dysuria (principal) | CPT/HCPCS: 81000; 87086 ==